=== PATIENT | male | born 1975 | race Caucasian/White ===

== ENCOUNTER 2018-06-18 15:03 | Inpatient (IN) ==
[2018-06-18 15:45] LABS: Basophils % 0.2 %; Eosinophils % 0.1 %; Hematocrit 48.2 % (37.5-50.1); Hemoglobin 16.4 g/dL (12.9-16.9); Immature Granulocytes % 0.4 % (0-4); Lymphocytes # 1.5 K/mcL (0.6-4.6); Lymphocytes % 9.4 %; Mean Corpuscular Hemoglobin 30.9 pg (28.0-33.3); Mean Corpuscular Volume 90.9 fL (83.0-100.0); Monocytes # 1.4 K/mcL (0.0-1.3); Monocytes % 8.8 %; Neutrophils # 13.2 K/mcL (1.6-8.9); Platelet Count 187 K/mcL (140-400); Red Cell Distribution Width 12.6 % (11.5-14.5); Segmented Neutrophils % 81.1 %
[2018-06-18 15:46] LABS: Bilirubin,Urine Small (Negative); Blood,Urine Small (Negative); Clarity,Urine Clear (Clear); Color,Urine Dark Yellow (Yellow); Glucose,Urine (UA) Normal (Normal); Ketones,Urine 15 mg/dL (Negative); Leukocyte Esterase,Urine Trace (Negative); Nitrite,Urine Negative (Negative); PH,Urine 6.5 pH Units (5.0-8.0); Protein,Urine 30 mg/dL (Neg-Trace); Specific Gravity,Urine 1.018 (1.010-1.025); Urobilinogen,Urine Normal (Normal)
[2018-06-18 15:48] LABS: Bacteria,Urine None Seen per hpf (None-Few); Hyaline Casts,Urine None Seen per lpf (None-Few); RBC,Urine 0-3 per hpf (0-3); Squamous Epithelial Cell,Urine Few per lpf (None-Few); WBC,Urine 0-3 per hpf (0-3)
[2018-06-18] MEDS ORDERED: 0.9 % Sodium Chloride 1,000 ML IVC ONE (15:52)
[2018-06-18] MEDS ORDERED: *HR* FentaNYL (PF) 100 MCG/2 ML VIAL IVP ONE ×2 (15:52→17:28)
[2018-06-18] MEDS ORDERED: Ondansetron 4 MG/2 ML VIAL IVP ONE (15:52)
--- NOTE | 2018-06-18 15:52 | Emergency Department Note ---
Disposition Clinical Impression: Elevated bilirubin, Perforation of sigmoid colon due to diverticulitis Leukocytosis Qualifiers: Leukocytosis type: unspecified Qualified Code(s): D72.829 - Elevated white blood cell count, unspecified Abdominal pain Qualifiers: Abdominal location: generalized Qualified Code(s): R10.84 - Generalized abdominal pain Disposition: Admitted As Inpatient Condition: Good General Adult HPI - General Chief complaint: ED Abdominal Pain Stated complaint: abd pain Time Seen by Provider: 06/18/18 15:14 - History of Present Illness Pain Scale: 6 - Related Data Allergies Allergy/AdvReac Type Severity Reaction Status Date / Time No Known Allergies Allergy Verified 06/18/18 15:15 Past Medical History - Past Medical History Medical history: Reports: no medical history Psychiatric history: Reports: no psych history - Social History Smoking Status: Current every day smoker Alcohol use: Reports: occasionally Drug use: Reports: none Physical Exam - General General appearance: alert, in no apparent distress Course Vital Signs Temperature 98.8 F 06/18/18 15:12 Pulse Rate 93 06/18/18 15:12 Respiratory Rate 18 06/18/18 15:12 Blood Pressure 149/90 06/18/18 15:12 O2 Sat by Pulse Oximetry 94 06/18/18 15:12 Temperature 98.8 F 06/18/18 15:20 Pulse Rate 99 06/18/18 17:40 Respiratory Rate 14 06/18/18 18:55 Blood Pressure 120/83 06/18/18 18:55 O2 Sat by Pulse Oximetry 98 06/18/18 17:40 Oxygen Delivery Oxygen Delivery Room Air Medical Decision Making - Lab Data Result diagrams: 06/18/18 15:33 06/18/18 15:33 Lab Results 06/18/18 06/18/18 06/18/18 Range/Units 15:21 15:33 15:33 WBC 16.2 H (4.3-11.1) K/mcL RBC 5.30 (4.19-5.50) M/mcL Hgb 16.4 (12.9-16.9) g/dL Hct 48.2 (37.5-50.1) % MCV 90.9 (83.0-100.0) fL MCH 30.9 (28.0-33.3) pg MCHC 34.0 (31.6-35.5) g/dL RDW 12.6 (11.5-14.5) % Plt Count 187 (140-400) K/mcL MPV 10.0 (9.4-12.4) fL Immature Gran % 0.4 (0-4) % Seg Neutrophils % 81.1 % Lymphocytes % 9.4 % Monocytes % 8.8 % Eosinophils % 0.1 % Basophils % 0.2 % Neutrophils # 13.2 H (1.6-8.9) K/mcL Lymphocytes # 1.5 (0.6-4.6) K/mcL Monocytes # 1.4 H (0.0-1.3) K/mcL Eosinophils # 0.0 (0.0-0.6) K/mcL Basophils # 0.0 (0.0-0.2) K/mcL Sodium 136 (136-145) mEq/L Potassium 4.1 (3.5-5.1) mEq/L Chloride 102 (98-107) mEq/L Carbon Dioxide 26 (23-29) mEq/L BUN 13 (6-20) mg/dL Creatinine 1.01 (0.70-1.30) mg/dL Est GFR ( Amer) > 60 (> 60) Est GFR (Non-Af Amer) > 60 (> 60) BUN/Creatinine Ratio 13 (6-26) Glucose 105 (70-105) mg/dL Calculated Osmolality 282 (280-300) Calcium 9.9 (8.6-10.3) mg/dL Total Bilirubin 2.3 H (0.3-1.0) mg/dL Direct Bilirubin 0.4 H (0.0-0.2) mg/dL Indirect Bilirubin 1.9 H (0.0-1.2) mg/dL AST 11 L (13-39) Units/L ALT 14 (7-52) Units/L Alkaline Phosphatase 68 (34-104) Units/L Serum Total Protein 8.0 (6.4-8.9) g/dL Albumin 4.9 (3.5-5.7) g/dL Globulin 3.1 (2.4-3.5) g/dL Albumin/Globulin Ratio 1.6 (1.1-2.2) Lipase 8 L (11-82) Units/L Urine Color Dark Yellow (Yellow) Urine Clarity Clear (Clear) Urine pH 6.5 (5.0-8.0) pH Units Ur Specific [place] 1.018 (1.010-1.025) Urine Protein 30 H (Neg-Trace) mg/dL Urine Glucose (UA) Normal (Normal) mg/dL Urine Ketones 15 H (Negative) mg/dL Urine Blood Small H (Negative) Urine Nitrite Negative (Negative) Urine Bilirubin Small H (Negative) Urine Urobilinogen Normal (Normal) mg/dL Ur Leukocyte Esterase Trace H (Negative) Urine Microscopic RBC 0-3 (0-3) per hpf Urine Microscopic WBC 0-3 (0-3) per hpf Ur Squamous Epith Cells Few (None-Few) per lpf Urine Bacteria None Seen (None-Few) per hpf Hyaline Casts None Seen (None-Few) per lpf Ur Culture Indicated? YES A (NO) Attestation Statement - Attestation Attestation: I examined this patient and my medical decision-making was reviewed with the Resident Physician. I agree with the documented findings, disposition and treatment plan as described except to the extent set forth below. Patient to the ED with a chief complaint of abdominal pain. Onset Thursday night. Pain started after eating [place] food. No diarrhea. He has not had a bowel movement since Thursday. Pain worsened today. He states is diffuse, and does not localize. On examination he appears uncomfortable. He has his knees d rawn to his abdomen. Diffuse tenderness. Seems to localize more over the lower abdomen. Plan. Labs show white blood cell count of 16,000. We will check CT CT shows diverticulitis with contained per. We will discuss with surgery Dr. nair will see in consult. Abdomen/Pelvis CT 06/18/18 15:50 IMPRESSION: Sigmoid diverticulitis with contained perforation. Focal wall thickening of the sigmoid is likely reactive although direct visualization with colonoscopy is recommended following appropriate therapy. Hepatic steatosis. Generalized bladder wall thickening. Correlation with urinalysis suggested. D/ / Kam Claros MD / Kam Claros MD Interpreting Provider: Kam Claros MD
--- NOTE | 2018-06-18 15:53 | Emergency Department Note ---
Disposition Clinical Impression: Elevated bilirubin, Perforation of sigmoid colon due to diverticulitis Leukocytosis Qualifiers: Leukocytosis type: unspecified Qualified Code(s): D72.829 - Elevated white blood cell count, unspecified Abdominal pain Qualifiers: Abdominal location: generalized Qualified Code(s): R10.84 - Generalized abdominal pain Disposition: Admitted As Inpatient Condition: Good Time of Disposition: 18:11 General Adult HPI - General Chief complaint: ED Abdominal Pain Stated complaint: abd pain Time Seen by Provider: 06/18/18 15:14 Source: patient Mode of arrival: ambulatory Limitations: no limitations Nursing Notes Reviewed: Yes Vital Signs Reviewed: Yes - History of Present Illness HPI Narrative: Patient is a 43-year-old male that presents to the emergency department with abdominal pain. Patient states is been ongoing for the past 2 days. Patient states that it began 2 nights ago and has progressively gotten worse. Patient denies any vomiting. Patient states that his last bowel movement was 2 nights ago. Patient states that since then he has had little gas production. Patient states that any time that he walks and takes heart separate on the car ride he has pain when he becomes chart. Patient states that he is a little bit more comfortable and his knees are drawn up towards his chest. Patient denies any blood in his stool or vomit. Patient states that he has had a decreased appetite and has not wanted to eat due to not feeling well and having increased abdominal pain. Patient states that he felt that he should come in to be evaluated due to having worsening of this abdominal pain. Pain Scale: 6 - Related Data Allergies Allergy/AdvReac Type Severity Reaction Status Date / Time No Known Allergies Allergy Verified 06/18/18 15:15 All systems ED: reviewed and negative except as stated. Cardiovascular: Denies: chest pain Respiratory: Denies: dyspnea Gastrointestinal: Reports: abdominal pain, nausea. Denies: vomiting, diarrhea Past Medical History - Past Medical History Medical history: Reports: no medical history Psychiatric history: Reports: no psych history - Social History Smoking Status: Current every day smoker Alcohol use: Reports: occasionally Drug use: Reports: none Physical Exam - General Limitations: no limitations General appearance: alert, in no apparent distress - Head Head exam: atraumatic, normocephalic - Eye Eye exam: Present: normal appearance, EOMI - Neck Neck exam: Present: normal inspection, full ROM, trachea midline - Respiratory Respiratory exam: Present: normal lung sounds bilaterally. Absent: respiratory distress, wheezes - Cardiovascular Cardiovascular exam: Present: regular rate, normal rhythm, normal heart sounds, +S1, +S2 - Abdominal Exam Abdominal exam: Present: soft, tenderness, guarding, normal bowel sounds. Absent: distention, rebound, rigidity Abdominal tenderness: Present: diffuse, moderate - Neurological Exam Neurological exam: Present: alert, oriented X3 - Psychiatric Psychiatric exam: Present: normal affect, normal mood - Skin Skin exam: Present: warm, dry, intact Course Vital Signs Temperature 98.8 F 06/18/18 15:12 Pulse Rate 93 06/18/18 15:12 Respiratory Rate 18 06/18/18 15:12 Blood Pressure 149/90 06/18/18 15:12 O2 Sat by Pulse Oximetry 94 06/18/18 15:12 Temperature 98.8 F 06/18/18 15:20 Pulse Rate 99 06/18/18 17:40 Respiratory Rate 16 06/18/18 17:40 Blood Pressure 122/56 06/18/18 17:40 O2 Sat by Pulse Oximetry 98 06/18/18 17:40 Oxygen Delivery Oxygen Delivery Room Air Medical Decision Making - MDM Narrative Medical decision making narrative: Due the patient presenting to the emergency department with significant abdominal pain we will obtain a CT scan of the abdomen and pelvis to evaluate for possible abdominal pathology as well as basic laboratory testing. There is a high clinical suspicion that this patient could have appendicitis versus diverticulitis. Patient does have an elevated white count. His CT scan showed sigmoid diverticulitis with a contained perforation. I called and spoke the on- call surgeon Dr. nair and he recommended that the patient be admitted to the hospital under the hospitalist service with a surgical consult. He also recommended that the patient be placed on Zosyn and Flagyl. Patient was started on Zosyn and Flagyl here in the emergency department was admitted to the hospitalist service. Dr. Garcia the [facility] was accepted the patient to their service. - Medical Records Medical records reviewed: Yes I reviewed the patient's medical records. - Lab Data Lab results reviewed: Yes I reviewed the patient's lab results. Result diagrams: 06/18/18 15:33 06/18/18 15:33 Lab Results 06/18/18 06/18/18 06/18/18 Range/Units 15:21 15:33 15:33 WBC 16.2 H (4.3-11.1) K/mcL RBC 5.30 (4.19-5.50) M/mcL Hgb 16.4 (12.9-16.9) g/dL Hct 48.2 (37.5-50.1) % MCV 90.9 (83.0-100.0) fL MCH 30.9 (28.0-33.3) pg MCHC 34.0 (31.6-35.5) g/dL RDW 12.6 (11.5-14.5) % Plt Count 187 (140-400) K/mcL MPV 10.0 (9.4-12.4) fL Immature Gran % 0.4 (0-4) % Seg Neutrophils % 81.1 % Lymphocytes % 9.4 % Monocytes % 8.8 % Eosinophils % 0.1 % Basophils % 0.2 % Neutrophils # 13.2 H (1.6-8.9) K/mcL Lymphocytes # 1.5 (0.6-4.6) K/mcL Monocytes # 1.4 H (0.0-1.3) K/mcL Eosinophils # 0.0 (0.0-0.6) K/mcL Basophils # 0.0 (0.0-0.2) K/mcL Sodium 136 (136-145) mEq/L Potassium 4.1 (3.5-5.1) mEq/L Chloride 102 (98-107) mEq/L Carbon Dioxide 26 (23-29) mEq/L BUN 13 (6-20) mg/dL Creatinine 1.01 (0.70-1.30) mg/dL Est GFR ( Amer) > 60 (> 60) Est GFR (Non-Af Amer) > 60 (> 60) BUN/Creatinine Ratio 13 (6-26) Glucose 105 (70-105) mg/dL Calculated Osmolality 282 (280-300) Calcium 9.9 (8.6-10.3) mg/dL Total Bilirubin 2.3 H (0.3-1.0) mg/dL Direct Bilirubin 0.4 H (0.0-0.2) mg/dL Indirect Bilirubin 1.9 H (0.0-1.2) mg/dL AST 11 L (13-39) Units/L ALT 14 (7-52) Units/L Alkaline Phosphatase 68 (34-104) Units/L Serum Total Protein 8.0 (6.4-8.9) g/dL Albumin 4.9 (3.5-5.7) g/dL Globulin 3.1 (2.4-3.5) g/dL Albumin/Globulin Ratio 1.6 (1.1-2.2) Lipase 8 L (11-82) Units/L Urine Color Dark Yellow (Yellow) Urine Clarity Clear (Clear) Urine pH 6.5 (5.0-8.0) pH Units Ur Specific [place] 1.018 (1.010-1.025) Urine Protein 30 H (Neg-Trace) mg/dL Urine Glucose (UA) Normal (Normal) mg/dL Urine Ketones 15 H (Negative) mg/dL Urine Blood Small H (Negative) Urine Nitrite Negative (Negative) Urine Bilirubin Small H (Negative) Urine Urobilinogen Normal (Normal) mg/dL Ur Leukocyte Esterase Trace H (Negative) Urine Microscopic RBC 0-3 (0-3) per hpf Urine Microscopic WBC 0-3 (0-3) per hpf Ur Squamous Epith Cells Few (None-Few) per lpf Urine Bacteria None Seen (None-Few) per hpf Hyaline Casts None Seen (None-Few) per lpf Ur Culture Indicated? YES A (NO) - Radiology Data Radiology results reviewed: Yes I reviewed the patient's radiology results. Abdomen/Pelvis CT 06/18/18 15:50 IMPRESSION: Sigmoid diverticulitis with contained perforation. Focal wall thickening of the sigmoid is likely reactive although direct visualization with colonoscopy is recommended following appropriate therapy. Hepatic steatosis. Generalized bladder wall thickening. Correlation with urinalysis suggested. D/ / Kam Claros MD / Kam Claros MD Interpreting Provider: Kam Claros MD
[2018-06-18 16:03] LABS: Alanine Aminotransferase 14 Units/L (7-52); Albumin 4.9 g/dL (3.5-5.7); Albumin/Globulin Ratio 1.6 (1.1-2.2); Alkaline Phosphatase 68 Units/L (34-104); Aspartate Amino Transferase 11 Units/L (13-39); BUN/Creatinine Ratio 13 (6-26); Bilirubin,Direct 0.4 mg/dL (0.0-0.2); Bilirubin,Indirect 1.9 mg/dL (0.0-1.2); Bilirubin,Total 2.3 mg/dL (0.3-1.0); Blood Urea Nitrogen 13 mg/dL (6-20); Calcium 9.9 mg/dL (8.6-10.3); Carbon Dioxide 26 mEq/L (23-29); Chloride 102 mEq/L (98-107); Globulin 3.1 g/dL (2.4-3.5); Glucose 105 mg/dL (70-105); Lipase 8 Units/L (11-82); Osmolality,Calculated 282 (280-300); Potassium 4.1 mEq/L (3.5-5.1); Sodium 136 mEq/L (136-145); eGFR For Non-African Americans > 60 (> 60)
[2018-06-18] MEDS ORDERED: MetroNIDAZOLE 500 MG/100 ML 500 MG/100 ML BAG IVPB ONE (17:44)
[2018-06-18] MEDS ORDERED: Piperacillin/Tazobactam 3.375 GM in 0.9 % Sodium Chloride Mini Bag 100 ML IVPB ONE (18:01)
[2018-06-18] MEDS ORDERED: Naloxone 0.4 MG/ML INJ IVP PRN (19:28)
[2018-06-18] MEDS ORDERED: Acetaminophen 325 MG TABLET PO PRN (19:28)
[2018-06-18] MEDS ORDERED: Ondansetron 4 MG/2 ML VIAL IVP PRN (19:28)
--- NOTE | 2018-06-18 19:33 | Internal Med History&Physical ---
Date of Encounter: 06/18/18 Time of Encounter: 19:30 Internal Medicine - H&P: HPI Chief complaint: Abdominal pain Admitted From: Emergency Dept Plans for Post Hospital Care: Home History of present illness: Mr. Duckworth is a 43 year old male who presents to the emergency department with abdominal pain that has been going on for a couple days or so. Started at nighttime a couple nights ago and has been getting worse. He said he had [place] food at the time. His last bowel movement was couple nights ago. He has been nauseous. The ED was hemodynamic is stable and underwent a CT abdomen and pelvis which showed sigmoid diverticulitis with contained perforation. Dr. Nair was consulted in the ED and recommended the patient be admitted and started on IV Flagyl and Zosyn. Labs showed leukocytosis. Bilirubin total was elevated at 2.3 and direct was 0.4 and indirect bilirubin was 1.9. AST and ALT were not elevated. Hospice was not elevated. No history of liver disease. Patient denies any headache, fever, chills, blurry vision, chest pain, shortness of breath, diarrhea, urinary symptoms, or neurological symptoms Past Med Surg Social Fam HX - Past Medical History Medical history: no medical history Psychiatric history: no psych history - Past Surgical History Additional surgical history: right ACL - Social History Smoking Status: Current every day smoker Alcohol use: occasionally Drug use: none Internal Medicine - H&P: Meds No Known Home Drugs 06/18/18 [History] Allergy/AdvReac Type Severity Reaction Status Date / Time No Known Allergies Allergy Verified 06/18/18 15:15 All Systems PM: A 10-system review of systems was performed and is negative for pertinent findings except as documented above in the HPI. Review of systems: All systems reviewed are negative except for as mentioned above - Constitutional Vitals: Temp Pulse Resp BP Pulse Ox 98.8 F 99 14 120/83 98 06/18/18 15:20 06/18/18 17:40 06/18/18 18:55 06/18/18 18:55 06/18/18 17:40 Exam: GEN: NAD HEENT: AT, NC, No cyanosis, oral mucosa is moist, No JVD Lymphatics: No lymphadenoapthy Eyes: Extrocular muscles intact, anicteric CVS:RRR. S1, S2, No m/r/g RESP: CTAB ABD: Left lower quadrant abdominal tenderness with no rebound, +BS EXT: No edema, No rashes, 2+ DP NEURO: Nonfocal, CN II-XII intact, No focal motor or sensory deficits Psych: Cooperative, Not anxious or depressed Internal Med - H&P Results - Labs CBC & Chem 7: 06/18/18 15:33 06/18/18 15:33 Labs: Short CBC 06/18/18 Range/Units 15:33 WBC 16.2 H (4.3-11.1) K/mcL Hgb 16.4 (12.9-16.9) g/dL Hct 48.2 (37.5-50.1) % Plt Count 187 (140-400) K/mcL Neutrophils # 13.2 H (1.6-8.9) K/mcL BMP 06/18/18 15:33 Sodium 136 Potassium 4.1 Chloride 102 Carbon Dioxide 26 BUN 13 Creatinine 1.01 Glucose 105 Calcium 9.9 Liver Function 06/18/18 Range/Units 15:33 Total Bilirubin 2.3 H (0.3-1.0) mg/dL Direct Bilirubin 0.4 H (0.0-0.2) mg/dL AST 11 L (13-39) Units/L ALT 14 (7-52) Units/L Alkaline Phosphatase 68 (34-104) Units/L Albumin 4.9 (3.5-5.7) g/dL Urine 06/18/18 Range/Units 15:21 Urine Color Dark Yellow (Yellow) Urine Clarity Clear (Clear) Urine pH 6.5 (5.0-8.0) pH Units Ur Specific [place] 1.018 (1.010-1.025) Urine Protein 30 H (Neg-Trace) mg/dL Urine Glucose (UA) Normal (Normal) mg/dL - Impressions ITS Impressions Abdomen/Pelvis CT 06/18/18 15:50 IMPRESSION: Sigmoid diverticulitis with contained perforation. Focal wall thickening of the sigmoid is likely reactive although direct visualization with colonoscopy is recommended following appropriate therapy. Hepatic steatosis. Generalized bladder wall thickening. Correlation with urinalysis suggested. D/ / Kam Claros MD / Kam Claros MD Interpreting Provider: Kam Claros MD - Assessment and plan (1) Perforation of sigmoid colon due to diverticulitis Current Visit: Yes Status: Acute Assessment and plan: Dr. nair was consulted in the ED regarding this and wanted the patient to be on Zosyn and Flagyl. We will order those. We will keep him nothing by mouth. Pain control and antiemetics. IV fluids. (2) Hyperbilirubinemia Current Visit: Yes Status: Acute Assessment and plan: I am going to attribute this to his infectious cause for now. We will check labs in the morning. If this persists it may need to be worked up further. (3) DVT prophylaxis Current Visit: Yes Status: Acute Assessment and plan: Heparin subcutaneous - Time Spent With Patient Total time spent is greater than 50% in coordination of care (as documented) at patient's floor/unit and/or counseling patient:
[2018-06-18] MEDS: *HR* HYDROcodone/Acet 5/325 mg TABLET PO PRN (20:10)
[2018-06-18] MEDS: 0.9 % Sodium Chloride 1,000 ML IVC SCH (20:13)
[2018-06-18] MEDS: MetroNIDAZOLE 500 MG/100 ML 500 MG/100 ML BAG IVPB SCH (23:11)
[2018-06-18] MEDS: Piperacillin/Tazobactam 3.375 GM in 0.9 % Sodium Chloride Mini Bag 100 ML IVPB SCH (23:11)
[2018-06-18] MEDS: *HR* Heparin 5,000 UNIT/ML VIAL SQ SCH (23:12)
[2018-06-18] MEDS ORDERED: Ketorolac 30 MG/ML VIAL IVP ONE (23:58)
[2018-06-19] MEDS: *HR* HYDROcodone/Acet 5/325 mg TABLET PO PRN ×2 (03:18→09:22)
[2018-06-19] MEDS: 0.9 % Sodium Chloride 1,000 ML IVC SCH ×2 (05:18→14:52)
[2018-06-19] MEDS: *HR* Heparin 5,000 UNIT/ML VIAL SQ SCH ×3 (05:29→21:03)
[2018-06-19 06:37] LABS: Basophils % 0.3 %; Eosinophils % 0.4 %; Immature Granulocytes % 0.4 % (0-4); Lymphocytes # 1.3 K/mcL (0.6-4.6); Lymphocytes % 13.1 %; Mean Corpuscular HGB Conc 32.8 g/dL (31.6-35.5); Mean Corpuscular Volume 94.6 fL (83.0-100.0); Mean Platelet Volume 10.3 fL (9.4-12.4); Monocytes # 0.9 K/mcL (0.0-1.3); Monocytes % 8.8 %; Neutrophils # 7.5 K/mcL (1.6-8.9); Platelet Count 151 K/mcL (140-400); Red Blood Count 4.23 M/mcL (4.19-5.50); Red Cell Distribution Width 12.6 % (11.5-14.5)
[2018-06-19 06:42] LABS: Hemoglobin 13.1 g/dL (12.9-16.9)
[2018-06-19 06:53] LABS: BUN/Creatinine Ratio 16 (6-26); Blood Urea Nitrogen 17 mg/dL (6-20); Calcium 8.6 mg/dL (8.6-10.3); Carbon Dioxide 25 mEq/L (23-29); Chloride 105 mEq/L (98-107); Glucose 82 mg/dL (70-105); Magnesium 2.4 mg/dL (1.6-2.6); Osmolality,Calculated 285 (280-300); Potassium 3.9 mEq/L (3.5-5.1); Sodium 137 mEq/L (136-145); eGFR For Non-African Americans > 60 (> 60)
[2018-06-19 06:54] LABS: Alanine Aminotransferase 10 Units/L (7-52); Albumin 3.7 g/dL (3.5-5.7); Albumin/Globulin Ratio 1.5 (1.1-2.2); Alkaline Phosphatase 51 Units/L (34-104); Aspartate Amino Transferase 9 Units/L (13-39); BUN/Creatinine Ratio 15 (6-26); Bilirubin,Total 1.5 mg/dL (0.3-1.0); Blood Urea Nitrogen 16 mg/dL (6-20); Calcium 8.5 mg/dL (8.6-10.3); Carbon Dioxide 26 mEq/L (23-29); Chloride 105 mEq/L (98-107); Globulin 2.5 g/dL (2.4-3.5); Glucose 82 mg/dL (70-105); Osmolality,Calculated 284 (280-300); Sodium 137 mEq/L (136-145); Total Protein 6.2 g/dL (6.4-8.9); eGFR For Non-African Americans > 60 (> 60)
[2018-06-19] MEDS: Piperacillin/Tazobactam 3.375 GM in 0.9 % Sodium Chloride Mini Bag 100 ML IVPB SCH ×2 (07:47→15:22)
[2018-06-19] MEDS: MetroNIDAZOLE 500 MG/100 ML 500 MG/100 ML BAG IVPB SCH ×2 (07:50→15:21)
[2018-06-19] MEDS ORDERED: *HR* HYDROmorphone (PF) 1 MG/ML SYRINGE IVP PRN (09:28)
--- NOTE | 2018-06-19 11:18 | Internal Med Progress Note ---
Hospitalist Progress Note - Encounter Date of Encounter: 06/19/18 Time of Encounter: 11:14 - Subjective Interval History: Seen and examined at bedside; patient is new to me. Information obtained from chart review and patient report. He is still having ABD pain, not much better from arrival. Says IV pain medicine is helping a little more than PO - Exam Vitals: Temp Pulse Resp BP Pulse Ox 98.3 F 58 16 118/67 94 06/19/18 07:07 06/19/18 07:07 06/19/18 07:07 06/19/18 07:07 06/19/18 07:07 Exam: General appearance: Present: A&O X 3, appears uncomfortable - Head Head exam: Present: atraumatic, normocephalic - Eye Eye exam: Present: PERRL, conjuntiva pink, sclera anicteric Pupils: Present: PERRL - Neck Neck exam general surgery: Present: supple, trachea midline. Absent: lymphadenopathy - Respiratory Respiratory exam: Present: chest wall tenderness, CTAB. Absent: accessory muscle use, rales, rhonchi, wheezes - Cardiovascular Cardiovascular exam: Present: RRR, +S1, +S2. Absent: diastolic murmur, gallop, rubs, systolic murmur - GI/Abdominal GI/Abdominal exam: Present: normal bowel sounds, soft, no peritoneal signs, diffuse tenderness Absent: distended - Extremities Exam Extremities exam: Present: warm, radial pulses palpable and symmetrical. A bsent: calf tenderness, cyanotic, pedal edema - Neurological Exam Neurological exam: Present: CN II-XII intact, oriented X3, no focal deficits. Absent: pronater drift, facial droop, speech deficit - Skin Skin exam: Present: dry, intact - Assessment and Plan (1) Perforation of sigmoid colon due to diverticulitis Current Visit: Yes Status: Acute Assessment and Plan: presented with abdominal pain. ABD CT showed sigmoid diverticulitis with contained perforation. Keep NPO, IV fluids and pain control. IV Zosyn and Flagyl. Surgery consulted (2) Hyperbilirubinemia Current Visit: Yes Status: Acute Assessment and Plan: Total bilirubin 2.3; in the setting of acute diverticulitis. Repeat bilirubin improving. Continue to monitor. DVT Prophylaxis: heparin - Time Spent with Patient Total time spent is greater than 50% in coordination of care (as documented) at patient's floor/unit and/or counseling patient: Internal Medicine: Result - Labs CBC & Chem 7: 06/19/18 05:53 06/19/18 05:53 Labs: Short CBC 06/18/18 06/19/18 Range/Units 15:33 05:53 WBC 16.2 H 9.7 (4.3-11.1) K/mcL Hgb 16.4 13.1 D (12.9-16.9) g/dL Hct 48.2 40.0 (37.5-50.1) % Plt Count 187 151 (140-400) K/mcL Neutrophils # 13.2 H 7.5 (1.6-8.9) K/mcL BMP 06/18/18 06/19/18 06/19/18 15:33 05:53 05:53 Sodium 136 137 137 Potassium 4.1 3.9 4.0 Chloride 102 105 105 Carbon Dioxide 26 25 26 BUN 13 17 16 Creatinine 1.01 1.09 1.07 Glucose 105 82 82 Calcium 9.9 8.6 8.5 L Liver Function 06/18/18 06/19/18 Range/Units 15:33 05:53 Total Bilirubin 2.3 H 1.5 H (0.3-1.0) mg/dL Direct Bilirubin 0.4 H (0.0-0.2) mg/dL AST 11 L 9 L (13-39) Units/L ALT 14 10 (7-52) Units/L Alkaline Phosphatase 68 51 (34-104) Units/L Albumin 4.9 3.7 (3.5-5.7) g/dL Urine 06/18/18 Range/Units 15:21 Urine Color Dark Yellow (Yellow) Urine Clarity Clear (Clear) Urine pH 6.5 (5.0-8.0) pH Units Ur Specific [place] 1.018 (1.010-1.025) Urine Protein 30 H (Neg-Trace) mg/dL Urine Glucose (UA) Normal (Normal) mg/dL - Impressions Impressions Abdomen/Pelvis CT 06/18/18 15:50 IMPRESSION: Sigmoid diverticulitis with contained perforation. Focal wall thickening of the sigmoid is likely reactive although direct visualization with colonoscopy is recommended following appropriate therapy. Hepatic steatosis. Generalized bladder wall thickening. Correlation with urinalysis suggested. D/ / Kam Claros MD / Kam Claros MD Interpreting Provider: Kam Claros MD Consult Discharge Plan - Plan Referrals: NONE,PCP [Primary Care Provider] -
[2018-06-19] MEDS ORDERED: *HR* HYDROmorphone 20 MG/20 ML PCA IVC PRN (14:32)
--- NOTE | 2018-06-19 14:50 | General Surgery Consult Note ---
Date of Encounter: 06/19/18 Time of Encounter: 14:00 History of Present Illness Reason for consult: abdominal pain (acute perforated diverticulitis with contained abscess) Requesting physician: Yovana Velez History of present illness: 43-year-old male admitted to [facility] after presenting to the emergency room with approximately 24-hour history of progressive lower abdominal pain. The pain is particularly severe in the left lower quadrant but he does have right lower quadrant abdominal pain. White count is elevated at 16.2 with 13.2 neutrophils. Electrolytes, BUN, creatinine were within normal limits. Total bilirubin 2.3 with AST 11, ALT 14, alkaline phosphatase 68. CT abdomen/pelvis notable for findings consistent with hepatic steatosis; colonic diverticulosis with superimposed sigmoid diverticulitis. The sigmoid is described to be diffusely thick-walled with a single punctate focus of extraluminal air adjacent to the inflamed diverticulum consistent with a contained perforation. The patient has been admitted, IV antibiotics initiated. Surgical services consulted. Past medical history: Unremarkable Surgical history: Right arthroscopic repair ACL; tonsils and adenoidectomy; vasectomy Medications: No routine home meds Allergies: No known drug allergies Social history: Patient admits to 1+ pack cigarettes per day for at least 25 years; he consumes alcohol (beer) 4-6 times weekly; he admits to rare marijuana use. No other illicit drug use Physical examination: Age-appropriate, well-developed well-nourished male resting comfortably in his hospital bed. 1.8 cm tall, 75.6 kg, BMI 22.6. Patient has remained afebrile, currently 98.5, pulse 71, respirations 16, blood pressure 123/73. SPO2 on room air 96% Skin: Warm, no obvious jaundice Lungs: Clear bilaterally, abdominal pain reported with deep inspiration Cardiac: Regular rate, no appreciable murmurs Abdomen: Nondistended, diffusely tender in both lower quadrants. No detected intra-abdominal masses but involuntary guarding decreases the sensitivity of his abdominal exam. No audible bowel sounds. The patient describes a diarrheal bowel movement this morning. Extremities: No obvious clubbing, cyanosis, or edema CT abdomen/pelvis - reviewed Labs: White count today has improved to 9.7, hemoglobin 13.1, hematocrit 40.0. Neutrophils have returned to normal at 7.5. Electrolytes, BUN, creatinine remain within normal limits. Bilirubin has improved to 1.5. Impression: 43-year-old male with acute sigmoid diverticulitis with extraluminal air consistent with a contained perforation. The patient was examined, and lengthy discussion ensued regarding treatment options. They include immediate or urgent surgical resection with high likelihood of an end colostomy versus aggressive therapy with IV antibiotics (Zosyn and metronidazole) with delayed primary resection (sigmoid colectomy with stapled colocolonic anastomosis) once the acute inflammation has subsided. Recommendations: Continue Zosyn and metronidazole Nothing by mouth until pain free - the patient may have ice chips sparingly I will follow along with you and make further recommendations based on the patient's clinical condition and response to intervention. Past Med Surg Social Fam HX - Past Medical History Medical history: no medical history Psychiatric history: no psych history - Past Surgical History Additional surgical history: right ACL - Social History Smoking Status: Current every day smoker Alcohol use: occasionally Drug use: none Medications and Allergies No Known Home Drugs 06/18/18 [History] Allergy/AdvReac Type Severity Reaction Status Date / Time No Known Allergies Allergy Verified 06/18/18 15:15 Review of Systems All systems PM: The remainder of the systems were reviewed and are negative General Surgery Exam Initial Vital Signs Temp Pulse Resp BP Pulse Ox 98.8 F 93 18 149/90 94 06/18/18 15:12 06/18/18 15:12 06/18/18 15:12 06/18/18 15:12 06/18/18 15:12 Exam Initial Vital Signs Temp Pulse Resp BP Pulse Ox 98.8 F 93 18 149/90 94 06/18/18 15:12 06/18/18 15:12 06/18/18 15:12 06/18/18 15:12 06/18/18 15:12 Results - Labs 06/19/18 05:53 06/19/18 05:53 Abnormal lab results Calcium 8.5 mg/dL (8.6-10.3) L 06/19/18 05:53 Total Bilirubin 1.5 mg/dL (0.3-1.0) H 06/19/18 05:53 Direct Bilirubin 0.4 mg/dL (0.0-0.2) H 06/18/18 15:33 Indirect Bilirubin 1.9 mg/dL (0.0-1.2) H 06/18/18 15:33 AST 9 Units/L (13-39) L 06/19/18 05:53 Serum Total Protein 6.2 g/dL (6.4-8.9) L 06/19/18 05:53 Lipase 8 Units/L (11-82) L 06/18/18 15:33 Urine Protein 30 mg/dL (Neg-Trace) H 06/18/18 15:21 Urine Ketones 15 mg/dL (Negative) H 06/18/18 15:21 Urine Blood Small (Negative) H 06/18/18 15:21 Urine Bilirubin Small (Negative) H 06/18/18 15:21 Ur Leukocyte Esterase Trace (Negative) H 06/18/18 15:21 Ur Culture Indicated? YES (NO) A 06/18/18 15:21 Diabetes panel 06/18/18 06/19/18 06/19/18 Range/Units 15:33 05:53 05:53 Sodium 136 137 137 (136-145) mEq/L Potassium 4.1 3.9 4.0 (3.5-5.1) mEq/L Chloride 102 105 105 (98-107) mEq/L Carbon Dioxide 26 25 26 (23-29) mEq/L BUN 13 17 16 (6-20) mg/dL Creatinine 1.01 1.09 1.07 (0.70-1.30) mg/dL Glucose 105 82 82 (70-105) mg/dL Calcium 9.9 8.6 8.5 L (8.6-10.3) mg/dL AST 11 L 9 L (13-39) Units/L ALT 14 10 (7-52) Units/L Alkaline Phosphatase 68 51 (34-104) Units/L Albumin 4.9 3.7 (3.5-5.7) g/dL Calcium panel 06/18/18 06/19/18 06/19/18 Range/Units 15:33 05:53 05:53 Calcium 9.9 8.6 8.5 L (8.6-10.3) mg/dL Albumin 4.9 3.7 (3.5-5.7) g/dL Pituitary panel 06/18/18 06/19/18 06/19/18 Range/Units 15:33 05:53 05:53 Sodium 136 137 137 (136-145) mEq/L Potassium 4.1 3.9 4.0 (3.5-5.1) mEq/L Chloride 102 105 105 (98-107) mEq/L Carbon Dioxide 26 25 26 (23-29) mEq/L BUN 13 17 16 (6-20) mg/dL Creatinine 1.01 1.09 1.07 (0.70-1.30) mg/dL Glucose 105 82 82 (70-105) mg/dL Calcium 9.9 8.6 8.5 L (8.6-10.3) mg/dL Adrenal panel 06/18/18 06/19/18 06/19/18 Range/Units 15:33 05:53 05:53 Sodium 136 137 137 (136-145) mEq/L Potassium 4.1 3.9 4.0 (3.5-5.1) mEq/L Chloride 102 105 105 (98-107) mEq/L Carbon Dioxide 26 25 26 (23-29) mEq/L BUN 13 17 16 (6-20) mg/dL Creatinine 1.01 1.09 1.07 (0.70-1.30) mg/dL Glucose 105 82 82 (70-105) mg/dL Calcium 9.9 8.6 8.5 L (8.6-10.3) mg/dL Total Bilirubin 2.3 H 1.5 H (0.3-1.0) mg/dL AST 11 L 9 L (13-39) Units/L ALT 14 10 (7-52) Units/L Alkaline Phosphatase 68 51 (34-104) Units/L Albumin 4.9 3.7 (3.5-5.7) g/dL All other labs normal. Consult Discharge Plan - Plan Referrals: NONE,PCP [Primary Care Provider] -
[2018-06-20] MEDS: MetroNIDAZOLE 500 MG/100 ML 500 MG/100 ML BAG IVPB SCH ×4 (00:08→23:56)
[2018-06-20] MEDS: Piperacillin/Tazobactam 3.375 GM in 0.9 % Sodium Chloride Mini Bag 100 ML IVPB SCH ×4 (00:12→23:56)
[2018-06-20] MEDS: 0.9 % Sodium Chloride 1,000 ML IVC SCH ×2 (00:24→08:20)
[2018-06-20 05:02] LABS: Hematocrit 38.4 % (37.5-50.1); Hemoglobin 13.1 g/dL (12.9-16.9); Mean Corpuscular HGB Conc 34.1 g/dL (31.6-35.5); Mean Corpuscular Hemoglobin 31.4 pg (28.0-33.3); Mean Corpuscular Volume 92.1 fL (83.0-100.0); Platelet Count 151 K/mcL (140-400); Red Blood Count 4.17 M/mcL (4.19-5.50); Red Cell Distribution Width 12.2 % (11.5-14.5)
[2018-06-20 05:20] LABS: BUN/Creatinine Ratio 13 (6-26); Blood Urea Nitrogen 13 mg/dL (6-20); Calcium 8.5 mg/dL (8.6-10.3); Carbon Dioxide 18 mEq/L (23-29); Chloride 108 mEq/L (98-107); Glucose 81 mg/dL (70-105); Osmolality,Calculated 285 (280-300); Potassium 3.9 mEq/L (3.5-5.1); Sodium 138 mEq/L (136-145); eGFR For Non-African Americans > 60 (> 60)
[2018-06-20] MEDS: *HR* Heparin 5,000 UNIT/ML VIAL SQ SCH ×3 (05:21→21:30)
--- NOTE | 2018-06-20 09:24 | Internal Med Progress Note ---
Hospitalist Progress Note - Encounter Date of Encounter: 06/20/18 Time of Encounter: 09:29 - Subjective Interval History: Seen and examined at bedside. Still having abdominal pain but overall improved from yesterday's exam. He is tolerating ice chips with no increase in abdominal pain at this time. - Exam Vitals: Temp Pulse Resp BP Pulse Ox 98.5 F 62 15 131/61 96 06/20/18 04:11 06/20/18 04:11 06/20/18 04:11 06/20/18 04:11 06/20/18 04:11 Exam: General appearance: Present: A&O X 3, no distress - Head Head exam: Present: atraumatic, normocephalic - Eye Eye exam: Present: PERRL, conjuntiva pink, sclera anicteric Pupils: Present: PERRL - Neck Neck exam general surgery: Present: supple, trachea midline. Absent: lymphadenopathy - Respiratory Respiratory exam: Present: chest wall tenderness, CTAB. Absent: accessory muscle use, rales, rhonchi, wheezes - Cardiovascular Cardiovascular exam: Present: RRR, +S1, +S2. Absent: diastolic murmur, gallop, rubs, systolic murmur - GI/Abdominal GI/Abdominal exam: Present: normal bowel sounds, soft, no peritoneal signs, + diffuse tenderness Absent: distended - Extremities Exam Extremities exam: Present: warm, radial pulses palpable and symmetrical. Absent: calf tenderness, cyanotic, pedal edema - Neurological Exam Neurological exam: Present: CN II-XII intact, oriented X3, no focal deficits. Absent: pronater drift, facial droop, speech deficit - Skin Skin exam: Present: dry, intact - Assessment and Plan (1) Perforation of sigmoid colon due to diverticulitis Current Visit: Yes Status: Acute Assessment and Plan: presented with abdominal pain. ABD CT showed sigmoid diverticulitis with co ntained perforation. General surgery following and surgical options are urgent surgical resection with high likelihood of an end colostomy versus aggressive therapy with IV antibiotics with delayed primary resection once the acute inflammation has subsided. Keep NPO for now (ice chips okay per surgery), IV fluids and RESOURCE DEVELOPMENT DIRECTOR pump for pain control. IV Zosyn and Flagyl. General Surgery following (2) Hyperbilirubinemia Current Visit: Yes Status: Acute Assessment and Plan: Total bilirubin 2.3; in the setting of acute diverticulitis. Repeat bilirubin improving. Continue to monitor. DVT Prophylaxis: heparin - Time Spent with Patient Total time spent is greater than 50% in coordination of care (as documented) at patient's floor/unit and/or counseling patient: 25 - 35 minutes Plan of Care Discussed with: patient Internal Medicine: Result - Labs CBC & Chem 7: 06/20/18 04:37 06/20/18 04:37 Labs: Short CBC 06/20/18 Range/Units 04:37 WBC 6.1 (4.3-11.1) K/mcL Hgb 13.1 (12.9-16.9) g/dL Hct 38.4 (37.5-50.1) % Plt Count 151 (140-400) K/mcL BMP 06/20/18 04:37 Sodium 138 Potassium 3.9 Chloride 108 H Carbon Dioxide 18 L BUN 13 Creatinine 0.98 Glucose 81 Calcium 8.5 L Consult Discharge Plan - Plan Referrals: NONE,PCP [Primary Care Provider] -
--- NOTE | 2018-06-20 10:08 | General Surgery Progress Note ---
Date of Encounter: 06/20/18 Time of Encounter: 09:40 Subjective Patient reports: feels better, still having pain Narrative: General Surgery - Patient feeling better; no nausea or vomiting. Afebrile, hemodynamically stable. Pulse 62, respirations 15, blood pressure 131/61. Lungs: Clear to auscultation, no longer experiencing pain on deep inspiration Abdomen: Soft with persistent tenderness, primarily located left lower quadrant. Active bowel sounds. Patient passing flatus, 2 small diarrheal bowel movements noted since admission Laboratories: White count 6.1, hemoglobin 13.1 and hematocrit 38.4. Electrolytes notable for a chloride of 108, bicarbonate 18. BUN 13, creatinine 0.98 CT abdomen/pelvis reviewed with [facility] - the described single punctate focus of extraluminal air adjacent to the inflamed diverticulum may be extraluminal versus located within a "elongated" diverticulum. This finding does not change current treatment options, however, may make a difference in surgical treatment recommended in the future. Recommendations: Continue current IV antibiotics Reduce IV fluids Maintain NPO except for ice chips until pain is significantly diminished or resolved. Objective Vital Signs - Last 8 Hours Temp Pulse Resp BP Pulse Ox 06/20/18 04:11 98.5 F 62 15 131/61 96 Intake and Output 06/19/18 06/20/18 06/20/18 23:59 07:59 15:59 Intake Total 1200 / 1200 200 / 200 1000 / 1000 Output Total 350 / 350 Balance 850 / 850 200 / 200 1000 / 1000 Intake: IV Fluids 1200 / 1200 200 / 200 1000 / 1000 0.9 % Sodium Chloride 1,000 ML 1000 / 1000 1000 / 1000 @ 125 mls/hr IVC .Q8H [facility] Rx#: [id number] Flagyl Premix 500 MG/100 ML 500 100 / 100 100 / 100 mg In 100 ml @ 100 mls/hr IVPB Q8HR [facility] Rx#:[id number] Zosyn 3.375 GM In 0.9 % Sodium 100 / 100 100 / 100 Chloride (Mini-Bag +) 100 ML @ 25 mls/hr IVPB Q8HR [facility] Rx#: [id number] Oral 0 / 0 Output: Urine 350 / 350 Other: Meal npo Percent of Meal Consumed 0% Weight 75.8 kg Blood Glucose* 75 78 Patient Weight 06/20/18 23:59 Weight 75.8 kg - Labs 06/20/18 04:37 06/20/18 04:37 Diabetes panel 06/20/18 Range/Units 04:37 Sodium 138 (136-145) mEq/L Potassium 3.9 (3.5-5.1) mEq/L Chloride 108 H (98-107) mEq/L Carbon Dioxide 18 L (23-29) mEq/L BUN 13 (6-20) mg/dL Creatinine 0.98 (0.70-1.30) mg/dL Glucose 81 (70-105) mg/dL Calcium 8.5 L (8.6-10.3) mg/dL Calcium panel 06/20/18 Range/Units 04:37 Calcium 8.5 L (8.6-10.3) mg/dL Pituitary panel 06/20/18 Range/Units 04:37 Sodium 138 (136-145) mEq/L Potassium 3.9 (3.5-5.1) mEq/L Chloride 108 H (98-107) mEq/L Carbon Dioxide 18 L (23-29) mEq/L BUN 13 (6-20) mg/dL Creatinine 0.98 (0.70-1.30) mg/dL Glucose 81 (70-105) mg/dL Calcium 8.5 L (8.6-10.3) mg/dL Adrenal panel 06/20/18 Range/Units 04:37 Sodium 138 (136-145) mEq/L Potassium 3.9 (3.5-5.1) mEq/L Chloride 108 H (98-107) mEq/L Carbon Dioxide 18 L (23-29) mEq/L BUN 13 (6-20) mg/dL Creatinine 0.98 (0.70-1.30) mg/dL Glucose 81 (70-105) mg/dL Calcium 8.5 L (8.6-10.3) mg/dL Consult Discharge Plan - Plan Referrals: NONE,PCP [Primary Care Provider] -
[2018-06-20] MEDS: D5% in 0.45% NACL 1,000 ML IVC SCH ×2 (11:31→23:57)
[2018-06-21] MEDS: *HR* Heparin 5,000 UNIT/ML VIAL SQ SCH ×3 (04:59→20:53)
[2018-06-21 05:31] LABS: Hematocrit 35.4 % (37.5-50.1); Hemoglobin 12.2 g/dL (12.9-16.9); Mean Corpuscular HGB Conc 34.5 g/dL (31.6-35.5); Mean Corpuscular Hemoglobin 31.1 pg (28.0-33.3); Mean Corpuscular Volume 90.3 fL (83.0-100.0); Mean Platelet Volume 10.1 fL (9.4-12.4); Platelet Count 160 K/mcL (140-400); Red Blood Count 3.92 M/mcL (4.19-5.50); Red Cell Distribution Width 12.1 % (11.5-14.5)
[2018-06-21 05:51] LABS: Alanine Aminotransferase 9 Units/L (7-52); Albumin 3.5 g/dL (3.5-5.7); Albumin/Globulin Ratio 1.4 (1.1-2.2); Alkaline Phosphatase 45 Units/L (34-104); Aspartate Amino Transferase 11 Units/L (13-39); BUN/Creatinine Ratio 9 (6-26); Bilirubin,Direct 0.2 mg/dL (0.0-0.2); Bilirubin,Indirect 0.5 mg/dL (0.0-1.2); Bilirubin,Total 0.7 mg/dL (0.3-1.0); Blood Urea Nitrogen 8 mg/dL (6-20); Calcium 8.5 mg/dL (8.6-10.3); Carbon Dioxide 25 mEq/L (23-29); Chloride 108 mEq/L (98-107); Globulin 2.5 g/dL (2.4-3.5); Glucose 105 mg/dL (70-105); Osmolality,Calculated 287 (280-300); Potassium 3.9 mEq/L (3.5-5.1); Sodium 139 mEq/L (136-145); eGFR For Non-African Americans > 60 (> 60)
[2018-06-21] MEDS: Piperacillin/Tazobactam 3.375 GM in 0.9 % Sodium Chloride Mini Bag 100 ML IVPB SCH ×3 (08:37→23:43)
[2018-06-21] MEDS: MetroNIDAZOLE 500 MG/100 ML 500 MG/100 ML BAG IVPB SCH ×3 (08:38→23:44)
[2018-06-21] MEDS: D5% in 0.45% NACL 1,000 ML IVC SCH (14:37)
--- NOTE | 2018-06-21 17:46 | Internal Med Progress Note ---
Hospitalist Progress Note - Encounter Date of Encounter: 06/21/18 Time of Encounter: 17:41 - Subjective Interval History: Pt denies fever, chills, N/V , diarrhea. Abdominal pain improved. Denies chest pain or SOB. - Exam Vitals: Temp Pulse Resp BP Pulse Ox 98.3 F 45 14 123/70 97 06/21/18 14:49 06/21/18 14:49 06/21/18 14:49 06/21/18 14:49 06/21/18 14:49 Exam: General appearance: Present: A&O X 3, no distress - Head Head exam: Present: atraumatic, normocephalic - Eye Eye exam: Present: PERRL, conjuntiva pink, sclera anicteric Pupils: Present: PERRL - Neck Neck exam general surgery: Present: supple, trachea midline. Absent: lymphadenopathy - Respiratory Respiratory exam: Present: chest wall tenderness, CTAB. Absent: accessory muscle use, rales, rhonchi, wheezes - Cardiovascular Cardiovascular exam: Present: RRR, +S1, +S2. Absent: diastolic murmur, gallop, rubs, systolic murmur - GI/Abdominal GI/Abdominal exam: Present: normal bowel sounds, soft, no peritoneal signs, + diffuse tenderness Absent: distended - Extremities Exam Extremities exam: Present: warm, radial pulses palpable and symmetrical. Absent: calf tenderness, cyanotic, pedal edema - Neurological Exam Neurological exam: Present: CN II-XII intact, oriented X3, no focal deficits. Absent: pronater drift, facial droop, speech deficit - Skin Skin exam: Present: dry, intact - Assessment and Plan (1) Perforation of sigmoid colon due to diverticulitis Current Visit: Yes Status: Acute Assessment and Plan: Pt presented with abdominal pain. ABD CT showed sigmoid diverticulitis with contained perforation. General surgery following and managing with IV antibiotics with delayed primary resection once the acute inflammation has subsided. Dr. Hurd states starting pt on clear liquid for now. On IV fluids and PHYSICIST [employer] pump for pain control. IV Zosyn and Flagyl. General Surgery following (2) Hyperbilirubinemia Current Visit: Yes Status: Acute Assessment and Plan: Resolved. Total bilirubin 2.3; in the setting of acute diverticulitis. Repeat bilirubin 0.7, resolved. DVT Prophylaxis: heparin - Summary of Assessment and Plan Summary of Assessment and Plan: History of present illness: Dr. Hooker Mr. Duckworth is a 43 year old male who presents to the emergency department with abdominal pain that has been going on for a couple days or so. Started at nighttime a couple nights ago and has been getting worse. He said he had [place] food at the time. His last bowel movement was couple nights ago. He has been nauseous. The ED was hemodynamic is stable and underwent a CT abdomen and pelvis which showed sigmoid diverticulitis with contained perforation. Dr. Hurd was consulted in the ED and recommended the patient be admitted and started on IV Flagyl and Zosyn. Labs showed leukocytosis. Bilirubin total was elevated at 2.3 and direct was 0.4 and indirect bilirubin was 1.9. AST and ALT were not elevated. Hospice was not elevated. No history of liver disease. Patient denies any headache, fever, chills, blurry vision, chest pain, shortness of breath, diarrhea, urinary symptoms, or neurological symptoms - Time Spent with Patient Total time spent is greater than 50% in coordination of care (as documented) at patient's floor/unit and/or counseling patient: less than 15 minutes Plan of Care Discussed with: patient Internal Medicine: Result - Labs CBC & Chem 7: 06/21/18 05:11 06/21/18 05:11 Labs: Short CBC 06/21/18 Range/Units 05:11 WBC 3.8 L (4.3-11.1) K/mcL Hgb 12.2 L (12.9-16.9) g/dL Hct 35.4 L (37.5-50.1) % Plt Count 160 (140-400) K/mcL [facility] 06/21/18 05:11 Sodium 139 Potassium 3.9 Chloride 108 H Carbon Dioxide 25 BUN 8 Creatinine 0.92 Glucose 105 Calcium 8.5 L Liver Function 06/21/18 Range/Units 05:11 Total Bilirubin 0.7 (0.3-1.0) mg/dL Direct Bilirubin 0.2 (0.0-0.2) mg/dL AST 11 L (13-39) Units/L ALT 9 (7-52) Units/L Alkaline Phosphatase 45 (34-104) Units/L Albumin 3.5 (3.5-5.7) g/dL Consult Discharge Plan - Plan Referrals: NONE,PCP [Primary Care Provider] -
--- NOTE | 2018-06-21 18:44 | General Surgery Progress Note ---
Date of Encounter: 06/21/18 Time of Encounter: 18:37 Subjective Patient reports: feels better Narrative: General Surgery - Hospital Day #2 - this is a delayed dictation The patient was examined followed by a prolonged consultation/[id number] encounter with the patient and his daughter in during more than 45 minutes This entailed an extensive discussion regarding treatment options. The patient is feeling much improved, left lower quadrant pain is significantly diminished. Patient has remained afebrile at 98.3 The patient is hemodynamically stable with heart rate 45 and regular, respirations 14-16, blood pressure 123/70. Despite the bradycardia his blood pr essure has been maintained. Lungs: Clear, no obvious abdominal pain on deep inspiration Abdomen: Soft with tenderness only elicited to deep palpation. There were no discernible masses. No rebound. Bowel sounds present Urine output: 1900 mL so far today. Laboratories: White count has fallen to 3.8, hemoglobin 12.2, hematocrit 35.4. Electrolytes within normal limits and stable, chloride 108 Impression: Acute sigmoid diverticulitis. There is extra luminal air suggestive of contained perforation however this may be air contained within an elongated diverticulum. The patient has responded well to IV antibiotics. Recommendations: Allow clear liquids, if no increase in abdominal pain, distention, nausea or vomiting then a be able to advance to full seen in a.m. Continue IV antibiotics Taper pain meds - reduce EMPLOYEE RELATIONS SPECIALIST today; Possibly po meds in AM Treatment options include: continue IV antibiotics until patient is pain free with repeat CT and if the acute inflammatory changes are sufficiently reduced, surgery during this hospitalization. Continue IV antibiotics until patient is pain free, advance diet as long as patient is pain free, discharge home on oral antibiotics to consider interval sigmoid resection in 6-8 weeks after all inflammation has resolved Sigmoid resection using either laparoscopic or robotic choices to perform the surgery If status deteriorates he will require urgent surgical intervention. Continue IV antibiotics transition to oral antibiotics to complete a 14 day course of therapy. If the acute symptoms subside, with radiologic resolution of the inflammatory changes, patient may consider deferring surgery until recurrent symptoms. These treatment options with their risks and benefits were extensively discussed with the patient and his daughter. Objective Vital Signs - Last 8 Hours Temp Pulse Resp BP Pulse Ox 06/21/18 14:49 98.3 F 45 14 123/70 97 06/21/18 11:13 98.2 F 86 16 161/99 Intake and Output 06/21/18 06/21/18 06/21/18 07:59 15:59 23:59 Intake Total 200 / 200 1200 / 1200 Output Total 1000 / 1000 650 / 650 250 / 250 Balance -800 / -800 550 / 550 -250 / -250 Intake: IV Fluids 200 / 200 1200 / 1200 D5% And 0.45% Nacl 1000 Ml Bag 1000 / 1000 1,000 ML @ 75 mls/hr IVC . [id number] [facility] Rx#:[id number] Flagyl Premix 500 MG/100 ML 500 100 / 100 100 / 100 mg In 100 ml @ 100 mls/hr IVPB Q8HR [facility] Rx#:[id number] Zosyn 3.375 GM In 0.9 % Sodium 100 / 100 100 / 100 Chloride (Mini-Bag +) 100 ML @ 25 mls/hr IVPB Q8HR [facility] Rx#: [id number] Oral 0 / 0 Output: Urine 1000 / 1000 650 / 650 250 / 250 Other: Meal NPO LUNCH # Voids 1 1 Blood Glucose* 106 - Labs 06/21/18 05:11 06/21/18 05:11 Diabetes panel 06/21/18 Range/Units 05:11 Sodium 139 (136-145) mEq/L Potassium 3.9 (3.5-5.1) mEq/L Chloride 108 H (98-107) mEq/L Carbon Dioxide 25 (23-29) mEq/L BUN 8 (6-20) mg/dL Creatinine 0.92 (0.70-1.30) mg/dL Glucose 105 (70-105) mg/dL Calcium 8.5 L (8.6-10.3) mg/dL AST 11 L (13-39) Units/L ALT 9 (7-52) Units/L Alkaline Phosphatase 45 (34-104) Units/L Albumin 3.5 (3.5-5.7) g/dL Calcium panel 06/21/18 Range/Units 05:11 Calcium 8.5 L (8.6-10.3) mg/dL Albumin 3.5 (3.5-5.7) g/dL Pituitary panel 06/21/18 Range/Units 05:11 Sodium 139 (136-145) mEq/L Potassium 3.9 (3.5-5.1) mEq/L Chloride 108 H (98-107) mEq/L Carbon Dioxide 25 (23-29) mEq/L BUN 8 (6-20) mg/dL Creatinine 0.92 (0.70-1.30) mg/dL Glucose 105 (70-105) mg/dL Calcium 8.5 L (8.6-10.3) mg/dL Adrenal panel 06/21/18 Range/Units 05:11 Sodium 139 (136-145) mEq/L Potassium 3.9 (3.5-5.1) mEq/L Chloride 108 H (98-107) mEq/L Carbon Dioxide 25 (23-29) mEq/L BUN 8 (6-20) mg/dL Creatinine 0.92 (0.70-1.30) mg/dL Glucose 105 (70-105) mg/dL Calcium 8.5 L (8.6-10.3) mg/dL Total Bilirubin 0.7 (0.3-1.0) mg/dL AST 11 L (13-39) Units/L ALT 9 (7-52) Units/L Alkaline Phosphatase 45 (34-104) Units/L Albumin 3.5 (3.5-5.7) g/dL Consult Discharge Plan - Plan Referrals: NONE,PCP [Primary Care Provider] -
[2018-06-21] MEDS ORDERED: *HR* HYDROmorphone 20 MG/20 ML PCA IVC PRN (18:48)
[2018-06-22] MEDS: *HR* Heparin 5,000 UNIT/ML VIAL SQ SCH ×3 (05:23→21:54)
[2018-06-22] MEDS: D5% in 0.45% NACL 1,000 ML IVC SCH ×2 (05:23→15:54)
[2018-06-22 06:33] LABS: Hematocrit 39.7 % (37.5-50.1); Hemoglobin 13.3 g/dL (12.9-16.9); Mean Corpuscular HGB Conc 33.5 g/dL (31.6-35.5); Mean Corpuscular Hemoglobin 30.5 pg (28.0-33.3); Mean Corpuscular Volume 91.1 fL (83.0-100.0); Mean Platelet Volume 10.1 fL (9.4-12.4); Platelet Count 194 K/mcL (140-400); Red Blood Count 4.36 M/mcL (4.19-5.50); Red Cell Distribution Width 11.9 % (11.5-14.5)
[2018-06-22 07:00] LABS: Alanine Aminotransferase 11 Units/L (7-52); Albumin 3.9 g/dL (3.5-5.7); Albumin/Globulin Ratio 1.6 (1.1-2.2); Alkaline Phosphatase 48 Units/L (34-104); Aspartate Amino Transferase 16 Units/L (13-39); BUN/Creatinine Ratio 6 (6-26); Bilirubin,Direct 0.2 mg/dL (0.0-0.2); Bilirubin,Indirect 0.6 mg/dL (0.0-1.2); Bilirubin,Total 0.8 mg/dL (0.3-1.0); Blood Urea Nitrogen 6 mg/dL (6-20); Calcium 8.9 mg/dL (8.6-10.3); Carbon Dioxide 22 mEq/L (23-29); Chloride 108 mEq/L (98-107); Globulin 2.5 g/dL (2.4-3.5); Glucose 98 mg/dL (70-105); Osmolality,Calculated 288 (280-300); Potassium 3.9 mEq/L (3.5-5.1); Sodium 140 mEq/L (136-145); Total Protein 6.4 g/dL (6.4-8.9); eGFR For Non-African Americans > 60 (> 60)
[2018-06-22] MEDS: Piperacillin/Tazobactam 3.375 GM in 0.9 % Sodium Chloride Mini Bag 100 ML IVPB SCH ×3 (07:31→23:56)
[2018-06-22] MEDS: MetroNIDAZOLE 500 MG/100 ML 500 MG/100 ML BAG IVPB SCH ×3 (07:37→23:59)
[2018-06-22] MEDS ORDERED: *HR* HYDROcodone/Acet 5/325 mg TABLET PO PRN (15:33)
[2018-06-22] MEDS ORDERED: Acetaminophen 325 MG TABLET PO PRN (15:36)
--- NOTE | 2018-06-22 16:03 | General Surgery Progress Note ---
Date of Encounter: 06/22/18 Time of Encounter: 15:55 Subjective Narrative: General Surgery - hospital day #3 Patient feeling significantly improved, pain is diminished almost resolved. Afebrile, currently 98.2; pulse 42-50, respirations 14, blood pressure 119/78. Patient with continued diminishing abdominal pain despite oral intake (clear liquids) and diminished FRONT DESK COORDINATOR pain meds Lungs: Clear Abdomen: Soft, nondistended, minimal tenderness to deep palpation in the left lower quadrant. No discernible masses. No rebound. Urine output: 1900 mL for calendar day 06/21/18; 800 mL so far today Laboratories: White count 4.0, hemoglobin 13.3, hematocrit 39.7. Impression: Acute sigmoid diverticulitis. Improved with IV antibiotics. Acceptable status with treatment. Tolerating clear liquids. Plan: Advance diet to full liquids; if liquids tolerated without increasing abdominal pain, fever or leukocytosis - regular diet in a.m. Discontinue IV fluids and FRONT DESK COORDINATOR Dilaudid Tylenol as needed for pain; Vicodin 5/325 every 6 hours as needed for pain not relieved by Tylenol. The patient's sister was at bedside; discuss continued care with the patient and his sister. Treatment options were again discussed. Urgent intervention is only planned if the patient has a sudden exacerbation of his symptoms as we advance diet and diminished pain control. Objective Vital Signs - Last 8 Hours Temp Pulse Resp BP Pulse Ox 06/22/18 13:37 98.2 F 50 14 119/78 97 06/22/18 10:45 98.4 F 42 14 121/77 97 06/22/18 08:32 95 Intake and Output 06/21/18 06/22/18 06/22/18 23:59 07:59 15:59 Intake Total 440 / 440 1200 / 1200 1550 / 1550 Output Total 250 / 250 300 / 300 500 / 500 Balance 190 / 190 900 / 900 1050 / 1050 Intake: IV Fluids 200 / 200 1200 / 1200 950 / 950 D5% And 0.45% Nacl 1000 Ml Bag 1000 / 1000 750 / 750 1,000 ML @ 75 mls/hr IVC . [id number] [facility] Rx#:[id number] Flagyl Premix 500 MG/100 ML 500 100 / 100 100 / 100 100 / 100 mg In 100 ml @ 100 mls/hr IVPB Q8HR [facility] Rx#:[id number] Zosyn 3.375 GM In 0.9 % Sodium 100 / 100 100 / 100 100 / 100 Chloride (Mini-Bag +) 100 ML @ 25 mls/hr IVPB Q8HR [facility] Rx#: [id number] Oral 240 / 240 0 / 0 600 / 600 Output: Urine 250 / 250 300 / 300 500 / 500 Other: Meal Dinner Lunch - Labs 06/22/18 05:29 06/22/18 05:29 Diabetes panel 06/22/18 Range/Units 05:29 Sodium 140 (136-145) mEq/L Potassium 3.9 (3.5-5.1) mEq/L Chloride 108 H (98-107) mEq/L Carbon Dioxide 22 L (23-29) mEq/L BUN 6 (6-20) mg/dL Creatinine 0.95 (0.70-1.30) mg/dL Glucose 98 (70-105) mg/dL Calcium 8.9 (8.6-10.3) mg/dL AST 16 (13-39) Units/L ALT 11 (7-52) Units/L Alkaline Phosphatase 48 (34-104) Units/L Albumin 3.9 (3.5-5.7) g/dL Calcium panel 06/22/18 Range/Units 05:29 Calcium 8.9 (8.6-10.3) mg/dL Albumin 3.9 (3.5-5.7) g/dL Pituitary panel 06/22/18 Range/Units 05:29 Sodium 140 (136-145) mEq/L Potassium 3.9 (3.5-5.1) mEq/L Chloride 108 H (98-107) mEq/L Carbon Dioxide 22 L (23-29) mEq/L BUN 6 (6-20) mg/dL Creatinine 0.95 (0.70-1.30) mg/dL Glucose 98 (70-105) mg/dL Calcium 8.9 (8.6-10.3) mg/dL Adrenal panel 06/22/18 Range/Units 05:29 Sodium 140 (136-145) mEq/L Potassium 3.9 (3.5-5.1) mEq/L Chloride 108 H (98-107) mEq/L Carbon Dioxide 22 L (23-29) mEq/L BUN 6 (6-20) mg/dL Creatinine 0.95 (0.70-1.30) mg/dL Glucose 98 (70-105) mg/dL Calcium 8.9 (8.6-10.3) mg/dL Total Bilirubin 0.8 (0.3-1.0) mg/dL AST 16 (13-39) Units/L ALT 11 (7-52) Units/L Alkaline Phosphatase 48 (34-104) Units/L Albumin 3.9 (3.5-5.7) g/dL Consult Discharge Plan - Plan Referrals: NONE,PCP [Primary Care Provider] -
--- NOTE | 2018-06-22 18:35 | Internal Med Progress Note ---
Hospitalist Progress Note - Encounter Date of Encounter: 06/22/18 Time of Encounter: 09:00 - Subjective Interval History: Pt feels abd pain has improved, need less pain meds, advanced to full liquid diet per surgical consult. No fever. - Exam Vitals: Temp Pulse Resp BP Pulse Ox 98.2 F 50 14 119/78 97 06/22/18 13:37 06/22/18 13:37 06/22/18 13:37 06/22/18 13:37 06/22/18 13:37 Exam: General appearance: Present: A&O X 3, no distress - Head Head exam: Present: atraumatic, normocephalic - Eye Eye exam: Present: PERRL, conjuntiva pink, sclera anicteric Pupils: Present: PERRL - Neck Neck exam general surgery: Present: supple, trachea midline. Absent: lymph adenopathy - Respiratory Respiratory exam: Present: chest wall tenderness, CTAB. Absent: accessory muscle use, rales, rhonchi, wheezes - Cardiovascular Cardiovascular exam: Present: RRR, +S1, +S2. Absent: diastolic murmur, gallop, rubs, systolic murmur - GI/Abdominal GI/Abdominal exam: Present: normal bowel sounds, soft, no peritoneal signs, + diffuse tenderness Absent: distended - Extremities Exam Extremities exam: Present: warm, radial pulses palpable and symmetrical. Absent: calf tenderness, cyanotic, pedal edema - Neurological Exam Neurological exam: Present: CN II-XII intact, oriented X3, no focal deficits. Absent: pronater drift, facial droop, speech deficit - Skin Skin exam: Present: dry, intact - Assessment and Plan (1) Perforation of sigmoid colon due to diverticulitis Current Visit: Yes Status: Acute Assessment and Plan: Pt presented with abdominal pain. ABD CT showed sigmoid diverticulitis with contained perforation. General surgery following and managing with IV antibiotics with delayed primary resection once the acute inflammation has subsided. Full liquid diet started today per surgical consult Dr Hurd On IV fluids and SHOVEL MECHANIC pump for pain control. IV Zosyn and Flagyl. General Surgery following (2) Hyperbilirubinemia Current Visit: Yes Status: Acute Assessment and Plan: Resolved. Total bilirubin 2.3; in the setting of acute diverticulitis. Repeat bilirubin 0.7, resolved. DVT Prophylaxis: heparin SC - Time Spent with Patient Total time spent is greater than 50% in coordination of care (as documented) at patient's floor/unit and/or counseling patient: 30 min 25 - 35 minutes Plan of Care Discussed with: patient Internal Medicine: Result - Labs CBC & Chem 7: 06/22/18 05:29 06/22/18 05:29 Labs: Short CBC 06/22/18 Range/Units 05:29 WBC 4.0 L (4.3-11.1) K/mcL Hgb 13.3 (12.9-16.9) g/dL Hct 39.7 (37.5-50.1) % Plt Count 194 (140-400) K/mcL BMP 06/22/18 05:29 Sodium 140 Potassium 3.9 Chloride 108 H Carbon Dioxide 22 L BUN 6 Creatinine 0.95 Glucose 98 Calcium 8.9 Liver Function 06/22/18 Range/Units 05:29 Total Bilirubin 0.8 (0.3-1.0) mg/dL Direct Bilirubin 0.2 (0.0-0.2) mg/dL AST 16 (13-39) Units/L ALT 11 (7-52) Units/L Alkaline Phosphatase 48 (34-104) Units/L Albumin 3.9 (3.5-5.7) g/dL Consult Discharge Plan - Plan Referrals: NONE,PCP [Primary Care Provider] -
[2018-06-23 05:35] LABS: Basophils % 0.7 %; Eosinophils # 0.1 K/mcL (0.0-0.6); Eosinophils % 1.4 %; Hematocrit 41.4 % (37.5-50.1); Hemoglobin 14.2 g/dL (12.9-16.9); Immature Granulocytes % 1.9 % (0-4); Lymphocytes # 1.3 K/mcL (0.6-4.6); Lymphocytes % 31.1 %; Mean Corpuscular HGB Conc 34.3 g/dL (31.6-35.5); Mean Corpuscular Hemoglobin 30.9 pg (28.0-33.3); Mean Corpuscular Volume 90.2 fL (83.0-100.0); Mean Platelet Volume 10.2 fL (9.4-12.4); Monocytes # 0.4 K/mcL (0.0-1.3); Monocytes % 9.2 %; Neutrophils # 2.3 K/mcL (1.6-8.9); Platelet Count 192 K/mcL (140-400); Red Blood Count 4.59 M/mcL (4.19-5.50); Segmented Neutrophils % 55.7 %
[2018-06-23] MEDS: *HR* Heparin 5,000 UNIT/ML VIAL SQ SCH ×2 (05:42→14:00)
[2018-06-23 06:02] LABS: Reactive Lymphocytes Present (Not Present)
[2018-06-23 06:03] LABS: Platelet Estimate Normal (Normal)
[2018-06-23] MEDS: Piperacillin/Tazobactam 3.375 GM in 0.9 % Sodium Chloride Mini Bag 100 ML IVPB SCH (07:50)
[2018-06-23] MEDS: MetroNIDAZOLE 500 MG/100 ML 500 MG/100 ML BAG IVPB SCH (07:50)
--- NOTE | 2018-06-23 12:25 | Internal Med Progress Note ---
Hospitalist Progress Note - Encounter Date of Encounter: 06/23/18 Time of Encounter: 09:00 - Subjective Interval History: Pt feels abd pain has improved, need less pain meds, VENEER TAPING MACHINE OFFBEARER discontinued per surgical consult. Diet advanced to regular diet. Pt had BM yesterday. No fever. - Exam Vitals: Temp Pulse Resp BP Pulse Ox 98.5 F 51 14 121/73 97 06/23/18 07:41 06/23/18 07:41 06/23/18 07:41 06/23/18 07:41 06/23/18 07:41 Exam: General appearance: Present: A&O X 3, no distress - Head Head exam: Present: atraumatic, normocephalic - Eye Eye exam: Present: PERRL, conjuntiva pink, sclera anicteric Pupils: Present: PERRL - Neck Neck exam general surgery: Present: supple, trachea midline. Absent: lymphadenopathy - Respiratory Respiratory exam: Present: chest wall tenderness, CTAB. Absent: accessory muscle use, rales, rhonchi, wheezes - Cardiovascular Cardiovascular exam: Present: RRR, +S1, +S2. Absent: diastolic murmur, gallop, rubs, systolic murmur - GI/Abdominal GI/Abdominal exam: Present: normal bowel sounds, soft, no peritoneal signs, + diffuse tenderness, mainly on RLQ and LLQ. Absent: distended - Extremities Exam Extremities exam: Present: warm, radial pulses palpable and symmetrical. Absent: calf tenderness, cyanotic, pedal edema - Neurological Exam Neurological exam: Present: CN II-XII intact, oriented X3, no focal deficits. Absent: pronater drift, facial droop, speech deficit - Skin Skin exam: Present: dry, intact - Assessment and Plan (1) Perforation of sigmoid colon due to diverticulitis Current Visit: Yes Status: Acute Assessment and Plan: Pt presented with abdominal pain. ABD CT showed sigmoid diverticulitis with contained perforation. General surgery following and managing with IV antibiotics with delayed primary resection once the acute inflammation has subsided. Regular diet started today per surgical consult Dr Hurd Decreased pain meds requirement. IV cipro and Flagyl. General Surgery following (2) Hyperbilirubinemia Current Visit: Yes Status: Acute Assessment and Plan: Resolved. Total bilirubin 2.3; in the setting of acute diverticulitis. Repeat bilirubin 0.7. DVT Prophylaxis: heparin SC - Time Spent with Patient Total time spent is greater than 50% in coordination of care (as documented) at patient's floor/unit and/or counseling patient: 30 min 25 - 35 minutes Plan of Care Discussed with: patient Internal Medicine: Result - Labs CBC & Chem 7: 06/23/18 05:18 06/22/18 05:29 Labs: Short CBC 06/23/18 Range/Units 05:18 WBC 4.2 L (4.3-11.1) K/mcL Hgb 14.2 (12.9-16.9) g/dL Hct 41.4 (37.5-50.1) % Plt Count 192 (140-400) K/mcL Neutrophils # 2.3 (1.6-8.9) K/mcL Consult Discharge Plan - Plan Referrals: NONE,PCP [Primary Care Provider] -
[2018-06-23 14:48] VITALS: BP 149/97
--- NOTE | 2018-06-23 15:25 | General Surgery Progress Note ---
Date of Encounter: 06/23/18 Time of Encounter: 14:00 Subjective Patient reports: feels better, tolerating liquids well Narrative: General Surgery - Patient feeling well; tolerating full liquid diet. Abdominal pain resolved. Patient has not required any oral narcotic analgesics overnight. Patient remains afebrile, 98.1, hemodynamically stable - pulse 61-67, respir ations 14, blood pressure 143/87 to 149/97 Lungs: Clear, no obvious abdominal pain with deep inspiration Abdomen: Soft, nontender to deep palpation. No discernible intra-abdominal masses. No rebound. Laboratories: White count 4.2, hemoglobin 14.2, hematocrit 41.4. Normal differential. Impression: Hospital day #4 - 43-year-old male with acute sigmoid diverticulitis with extraluminal air consistent with a contained perforation. Abdominal pain resolved; leukocytosis resolved, currently leukopenic at 4.2 Patient tolerating full liquids; not requiring narcotic pain medication. Recommendations: Sufficient recovery and resolution of acute abdominal symptoms to allow discharge home Oral antibiotics to complete a 14 day course. Augmentin 500 mg by mouth 3 times a day and metronidazole 500 mg by mouth 3 times a day favored for this patient due to the possible contained perforation. She may consume a regular diet Surgical follow-up , 07/01/18 was patient experiences recurrent pain, fever, nausea, or vomiting Objective Vital Signs - Last 8 Hours Temp Pulse Resp BP Pulse Ox 06/23/18 14:44 98.1 F 67 14 149/97 99 06/23/18 12:29 98.1 F 61 14 143/87 97 06/23/18 07:41 98.5 F 51 14 121/73 97 Intake and Output 06/22/18 06/23/18 06/23/18 23:59 07:59 15:59 Intake Total 440 / 440 200 / 200 800 / 800 Output Total 1050 / 1050 350 / 350 Balance 440 / 440 -850 / -850 450 / 450 Intake: IV Fluids 200 / 200 200 / 200 200 / 200 Flagyl Premix 500 MG/100 ML 500 100 / 100 100 / 100 100 / 100 mg In 100 ml @ 100 mls/hr IVPB Q8HR [facility] Rx#:[id number] Zosyn 3.375 GM In 0.9 % Sodium 100 / 100 100 / 100 100 / 100 Chloride (Mini-Bag +) 100 ML @ 25 mls/hr IVPB Q8HR [facility] Rx#: [id number] Oral 240 / 240 600 / 600 Output: Urine 1050 / 1050 350 / 350 Other: Meal Dinner Lunch Percent of Meal Consumed 100% 100% # Voids 1 - Labs 06/23/18 05:18 06/22/18 05:29 Consult Discharge Plan - Plan Referrals: NONE,PCP [Primary Care Provider] -
--- NOTE | 2018-06-23 15:55 | Discharge Summary ---
- NOTES TO OUTPATIENT PROVIDER Notes to Outpatient Provider: 1. Cont po augmentin 500mg tid and flagyl 500mg tid to finish a 14 days course per surgical consult. Orders not resulted at time of discharge: Pending orders 06/24/18 04:00 BMP [Basic Metabolic Panel] AM 0400 Complete Blood Count [HEME] AM 0400 Date of Encounter: 06/23/18 Time of Encounter: 09:00 - Discharge Diagnosis (1) Perforation of sigmoid colon due to diverticulitis Priority: Primary Status: Acute (2) Hyperbilirubinemia Priority: Primary Status: Acute Hospital course: Mr. Duckworth is a 43 year old male presented to ER for abdominal pain. Abdominal CT reveals diverticulitis with contained perforation. Patient was placed on nothing by mouth, IV fluid, IV antibiotics. Surgical consult was called and saw patient and the follow-up patient during hospitalization. Recommendation from surgery consult was followed. After treatment, patient has less pain and tolerate a regular diet. Surgical consult cleared to discharge patient home with by mouth antibiotics. I have seen and examined this patient today. He has less pain, off ARBITRATOR. No fever. Vitals are stable. Will discharge patient home on by mouth antibiotics per surgical consult recommendations. Follow-up with surgeon Dr. Hurd as out patient. Discharge discussed with: patient - Time Spent with Patient Total time spent providing and/or coordinating discharge services: 30 minutes Less than 30 minutes - Discharge Medications Prescriptions: Acetaminophen [Tylenol] 650 mg PO Q6HR PRN 3 Days #24 tablet PRN Reason: Pain HYDROcodone/Acet 5/325 mg [Elizabeth 5-325 mg] 1 tab PO Q6HR PRN 2 Days #8 tablet PRN Reason: pain not relieved by Tylenol Home Medications: Acetaminophen [Tylenol] 650 mg PO Q6HR PRN 3 Days #24 tablet 06/23/18 [Rx] Amoxicillin/Clavulanate [Augmentin] 500 mg PO TID 10 Days #30 tablet 06/23/18 [Rx] HYDROcodone/Acet 5/325 mg [Elizabeth 5-325 mg] 1 tab PO Q6HR PRN 2 Days #8 tablet 06/23/18 [Rx] metroNIDAZOLE [Flagyl] 500 mg PO TID 10 Days #30 tablet 06/23/18 [Rx] Allergies/Adverse Reactions: Allergy/AdvReac Type Severity Reaction Status Date / Time No Known Allergies Allergy Verified 06/18/18 15:15 Date of admission: 06/19/18 16:34 Primary care physician: PCP NONE Consults: 06/18/18 18:02 Consult to Surgery [CONS] Stat Consulting Provider: [facility] Reason for Consult: tics with perf Time Notified: 18:02 Call Completed: Yes 06/21/18 15:44 Consult to [place] Resistance [CONS] Routine Reason for SW Consult: assistance with living will paperwork Discharging clinician: Chris Duron Anticipated date of discharge: 06/23/18 - Constitutional Vitals: Temp Pulse Resp BP Pulse Ox 98.1 F 67 14 149/97 99 06/23/18 14:44 06/23/18 14:44 06/23/18 14:44 06/23/18 14:44 06/23/18 14:44 General appearance: Present: A&O X 3, pleasant, no acute distress, answers questions appropriately Exam: General appearance: Present: A&O X 3, no distress - Head Head exam: Present: atraumatic, normocephalic - Eye Eye exam: Present: PERRL, conjuntiva pink, sclera anicteric Pupils: Present: PERRL - Neck Neck exam general surgery: Present: supple, trachea midline. Absent: lymphadenopathy - Respiratory Respiratory exam: Present: chest wall tenderness, CTAB. Absent: accessory muscle use, rales, rhonchi, wheezes - Cardiovascular Cardiovascular exam: Present: RRR, +S1, +S2. Absent: diastolic murmur, gallop, rubs, systolic murmur - GI/Abdominal GI/Abdominal exam: Present: normal bowel sounds, soft, no peritoneal signs, + diffuse tenderness, mainly on RLQ and LLQ. Absent: distended - Extremities Exam Extremities exam: Present: warm, radial pulses palpable and symmetrical. Absent: calf tenderness, cyanotic, pedal edema - Neurological Exam Neurological exam: Present: CN II-XII intact, oriented X3, no focal deficits. Absent: pronater drift, facial droop, speech deficit - Skin Skin exam: Present: dry, intact - Patient Status Disposition: Home, Self-Care Condition: Good Functional capacity at discharge: independent ambulation Overall status at discharge: patient is progressing back to baseline - Discharge Instructions Follow Up With: NONE,PCP [Primary Care Provider] - Dimas Hurd MD [Non-Partnered Physician] - 07/01/18 - Diet and Activity Activity: increase activity as tolerated Diet: regular diet
== END 2018-06-23 16:10 | disposition home or self-care (01) | DRG 392 ==
LOC: 3ANU 15:03 → EMEROOARM 15:03 → 3ANU 18:58 → SUATTDRO 06-19 16:34
PROVIDERS: ADMIT Internal Medicine; ATTEND Internal Medicine

== ENCOUNTER 2018-08-25 06:10 | Inpatient (IN) ==
[2018-08-25] MEDS ORDERED: cefOXitin 2,000 MG in Water for inj. (sterile) 20 ML 20 ML IVP ONE (06:23)
[2018-08-25] MEDS ORDERED: Ringers Solution, Lactated 1,000 ML IVC SCH ×2 (06:30→08:15)
[2018-08-25] MEDS ORDERED: *HR* Succinylcholine 200 MG/10 ML VIAL IVP ONE (07:39)
[2018-08-25] MEDS ORDERED: Dexamethasone 4 MG/ML VIAL ONE (07:39)
[2018-08-25] MEDS ORDERED: Lidocaine -MPF 2% 2 ML VIAL ONE (07:39)
[2018-08-25] MEDS ORDERED: *HR* Rocuronium Bromide 50 MG/5 ML VIAL ONE ×2 (07:39→09:30)
[2018-08-25] MEDS ORDERED: Ondansetron 4 MG/2 ML VIAL ONE (07:39)
[2018-08-25] MEDS ORDERED: *HR* Propofol 200 MG/20 ML VIAL IVP ONE (07:40)
[2018-08-25] MEDS ORDERED: *HR* FentaNYL (PF) 100 MCG/2 ML VIAL ONE (07:40)
[2018-08-25] MEDS ORDERED: *HR* Midazolam HCl 2 MG/2 ML VIAL ONE (07:40)
[2018-08-25] MEDS ORDERED: Lidocaine -MPF 4% 5 ML AMPUL ONE (07:42)
[2018-08-25] MEDS ORDERED: KETAMINE HCL 50 MG/ML SYRINGE IV ONE (08:01)
[2018-08-25] MEDS ORDERED: Acetaminophen IV 1,000 MG/100 ML INFUS..BTL ONE (08:03)
--- NOTE | 2018-08-25 08:03 | Anesthesia Evaluation PreOp ---
Date of Encounter: 08/25/18 Time of Encounter: 08:01 - Past History Planned Operation: Robotic sigmoid colon resection Cardiac History: Denies any Significant Hx Pulmonary History: Smoker, Pack/yr (20) NURSING PROGRAM COORDINATOR History: Denies Any Significant HX Other Medical History: Other (diverticulitis) Anesthesia History: No Prior Anesthetic Complications, Past Anesthesia (T&A, R ACL) Alcohol Use: occasionally Drug use: none Medications and Allergies Allergy/AdvReac Type Severity Reaction Status Date / Time No Known Allergies Allergy Verified 06/18/18 15:15 - Meds/Allergy Pre-op Review Medications Reviewed: Yes Allergies Reviewed: Yes Beta Blockers on Current Med List: No Anesthesia Results - Labs Laboratory Tests 06/22/18 08/18/18 05:29 09:40 WBC 5.9 Hgb 14.8 Hct 45.4 Plt Count 201 Sodium 140 Potassium 3.9 Chloride 108 H Carbon Dioxide 22 L BUN 6 Creatinine 0.95 Glucose 98 Anesthesia Exam O2 Sat Height 1.83 m Height 1.83 m Weight 81.647 kg Weight 81.647 kg O2 Sat by Pulse Oximetry 99 Vital Signs Temp Pulse Resp BP Pulse Ox 98.2 F 75 18 126/79 99 08/25/18 06:35 08/25/18 06:35 08/25/18 06:35 08/25/18 06:35 08/25/18 06:35 Height: 1.83m Weight: 81kg NPO (# of Hours): >8 Pain Scale: 0 Pain Scale Used: Numeric (1 - 10) - HEENT Pupil (Motor): Pupils equal, EOMI Mallampati: III Teeth: Normal Oral Opening: Greater than 3 - NURSING PROGRAM COORDINATOR LOC: Oriented NURSING PROGRAM COORDINATOR Motor: Normal RUE, Normal LUE, Normal RLE, Normal LLE, Normal Face NURSING PROGRAM COORDINATOR Sensory: Normal: RUE, LUE, RLE, LLE, Face - Cardiac Rhythm: Regular - Pulmonary Breath Sounds: bilateral Clear Respiratory Effort: Symmetrical Anesthesia Assess/Plan ASA Score: 2 Level of consciousness: Cooperative, Oriented Anesthetic Plan: General Monitoring Plan: Standard Monitors Recovery Plan: PACU
[2018-08-25] MEDS ORDERED: *HR* Meperidine 25 MG/ML SYRINGE IVP PRN (08:13)
[2018-08-25] MEDS ORDERED: *HR* OxyCODONE Immed Rel 5 MG TABLET PO PRN (08:13)
[2018-08-25] MEDS ORDERED: Ondansetron 4 MG/2 ML VIAL IVP ONE (08:13)
[2018-08-25] MEDS ORDERED: *HR* Promethazine 25 MG/ML VIAL IVP PRN (08:13)
--- NOTE | 2018-08-25 08:15 | History & Physical Report ---
Date of Encounter: 08/25/18 Time of Encounter: 08:14 24 Hour HP Update - Instructions Instructions: If the History and Physical is less than 30 days old and was completed prior to A.M. admission and or procedure and has NOT been updated on calendar day of procedure please complete this update prior to performing procedure. - Update Patient reports changes in Medical Condition: No Changes in examination, assessment, or condition: No Changes in Medication: No Preop tests/diagnostics Reviewed: Yes Surgery Remains Indicated: Yes Consent for Planned Operative Procedure(s) Verified: Yes - Pre-Operative Checklist Preoperative Checklist Indicated: Yes Prophylactic Antibiotic Ordered: Yes Home Medications Include Beta Timo: No
[2018-08-25] MEDS ORDERED: Neostigmine Methylsulfate 3 MG/3 ML SYRINGE ONE (09:00)
[2018-08-25] MEDS ORDERED: Ketorolac 30 MG/ML VIAL ONE (09:54)
[2018-08-25] MEDS ORDERED: *HR* HYDROMORPHONE 2 MG/ML VIAL ONE (10:17)
[2018-08-25] MEDS: *HR* HYDROmorphone (PF) 1 MG/ML SYRINGE IVP PRN ×2 (10:35→10:40)
--- NOTE | 2018-08-25 10:54 | Anesthesia Evaluation Post Op ---
Date of Encounter: 08/25/18 Time of Encounter: 10:54 - Vital Signs Vital Signs: Vital Signs/O2 Sat, Most Current Temp Pulse Resp BP Pulse Ox 97.3 F L 66 14 124/88 100 08/25/18 10:27 08/25/18 10:27 08/25/18 10:27 08/25/18 10:27 08/25/18 10:27 - Lungs Lungs: Clear Ascult./Percussion - Airway Airway: Non-obstructed - Cardiovascular Regular Rate - Mental Status Mental Status: Alert & Oriented, Answers Appropriately - Pain Pain Scale: 3 Pain Scale used: Numeric (1 - 10) - Nausea Vomiting Nausea Vomiting: Not Present - Hydration Hydration: Ice chips, Has not voided - Discharge PostOp Status: Transfer Patient to floor
[2018-08-25] MEDS ORDERED: Ondansetron 4 MG/2 ML VIAL IVP PRN (11:40)
[2018-08-25] MEDS ORDERED: Naloxone 0.4 MG/ML INJ IVP PRN (11:40)
[2018-08-25] MEDS: Ketorolac 15 MG/ML VIAL IVP SCH ×3 (12:12→23:59)
[2018-08-25] MEDS: 0.9 % Sodium Chloride 1,000 ML IVC SCH ×2 (12:13→23:58)
[2018-08-25] MEDS: OXYCODONE Oral CONC 10 MG/0.5 ML ORAL.SYG SL PRN ×2 (14:45→20:11)
--- NOTE | 2018-08-25 15:22 | Operative Note ---
Date of procedure: 08/25/18 Pre-op diagnosis: Sigmoid diverticulitis Post-op diagnosis: same Procedure: Robotic sigmoid resection with 29 mm EEA stapling Anesthesia: TOM Surgeon: Franc Hernandez Was there an bacteriology research assistant present: Yes Enterprise Sales Executive: Eusebia Woodard Estimated blood loss (cc): 5 Specimen: Sigmoid colon Condition: stable Disposition: same day Procedure in Detail: After informed consent, patient taken operating room placed supine position. After adequate sedation anesthesia patient was placed in a lithotomy position. After proper timeout a 12 mm cannula site was placed right superior to the umbilicus. Pneumoperitoneum was greater. A 13 mm cannula was placed in right lower quadrant. 5 mm camera was placed in the right upper quadrant. An 8 mm cannula was placed in subxiphoid region followed by another 8 mm in the left lower quadrant. Patient was placed in a headdown position. The robot was docked over the patient's left hip. Small bowel swept out of the pelvis. Rectosigmoid colon was then grasped and retracted cephalad. The peritoneum was then scored level of the sacral promontory. The left ureter was identified and kept on harm's way. The inferior mesenteric artery was then taken with a vessel sealer. The lateral rectosigmoid stalks were taken down the vessel sealer. The dissection was carried out down to approximate 4 cm above the pelvic floor. Rectosigmoid colon was dissected free from the retro-pubic tubercle region. Once it was freed a 45 mm robotic Endo staplers fired across the rectum. Once it was retracted and area was demarcated on the sigmoid colon for transection. Indocyanine green was infused and we had excellent perfusion. The splenic flexure was also taken down and mobilized. This mobilization allowed for less tension on the anastomosis. A counterincision was made in the suprapubic re gion. Dissection carried down the anterior rectus sheath. The rectus muscles were then divided in the midline with Aga clamp. Once they were split the rectosigmoid colon was delivered. Cami bowel clamps are used to place across the colon proximal and distal and transected. Allis clamps are placed on the bowel and then a pursestring suture device placed on the colon. 3-0 Prolene suture was passed. A pursestring sutures and created and a 29 mm EEA anvil was placed. Suture was tied and secured. Colon was then placed back in the pelvis. The stapler was passed through the anal canal and to the rectal stump and then the spear was placed through the staple line. The anvil was then connected secured and fired. There were 2 excellent donuts. There were several 2-0 silk sutures used to buttress the staple line. A leak test revealed no leak. At that point the procedure was terminated. All incisions are closed with 0 Vicryl suture and 4-0 Vicryl suture. Marcaine was inserted in the Pfannenstiel incision. He tolerated the procedure well.
[2018-08-25] MEDS: *HR* Morphine 2 MG/ML SYRINGE IVP PRN (22:24)
[2018-08-26] MEDS: OXYCODONE Oral CONC 10 MG/0.5 ML ORAL.SYG SL PRN ×2 (01:34→08:12)
[2018-08-26] MEDS: *HR* Morphine 2 MG/ML SYRINGE IVP PRN ×2 (04:16→10:00)
[2018-08-26] MEDS: Ketorolac 15 MG/ML VIAL IVP SCH ×2 (05:32→11:37)
[2018-08-26 06:46] LABS: Basophils % 0.1 %; Eosinophils % 0.1 %; Hematocrit 40.4 % (37.5-50.1); Hemoglobin 13.2 g/dL (12.9-16.9); Immature Granulocytes % 0.3 % (0-4); Lymphocytes # 1.4 K/mcL (0.6-4.6); Lymphocytes % 14.8 %; Mean Corpuscular HGB Conc 32.7 g/dL (31.6-35.5); Mean Corpuscular Hemoglobin 30.4 pg (28.0-33.3); Mean Corpuscular Volume 93.1 fL (83.0-100.0); Mean Platelet Volume 10.4 fL (9.4-12.4); Monocytes # 0.9 K/mcL (0.0-1.3); Monocytes % 9.4 %; Neutrophils # 6.9 K/mcL (1.6-8.9); Platelet Count 173 K/mcL (140-400); Red Blood Count 4.34 M/mcL (4.19-5.50); Red Cell Distribution Width 12.6 % (11.5-14.5); Segmented Neutrophils % 75.3 %
[2018-08-26 07:31] LABS: BUN/Creatinine Ratio 16 (6-26); Blood Urea Nitrogen 14 mg/dL (6-20); Calcium 8.5 mg/dL (8.6-10.3); Carbon Dioxide 24 mEq/L (23-29); Chloride 111 mEq/L (98-107); Glucose 95 mg/dL (70-105); Osmolality,Calculated 290 (280-300); Sodium 140 mEq/L (136-145); eGFR For Non-African Americans > 60 (> 60)
[2018-08-26] MEDS ORDERED: Simethicone 80 MG TAB.CHEW PO PRN (11:51)
[2018-08-26] MEDS ORDERED: Orphenadrine 60 MG/2 ML VIAL IVP ONE (12:02)
--- NOTE | 2018-08-26 12:51 | General Surgery Progress Note ---
Date of Encounter: 08/26/18 Time of Encounter: 11:30 - Assessment and Plan (1) S/P colectomy Current Visit: Yes Status: Acute Date of procedure: 08/25/18 Pre-op diagnosis: Sigmoid diverticulitis Post-op diagnosis: same Procedure: Robotic sigmoid resection with 29 mm EEA stapling Anesthesia: TOM Surgeon: Franc Hernandez POD #1 as above. Pathology pending. Patient states his abdominal discomfort is overall controlled. He has been up walking in the halls and has showered today. He denies passing flatus or having a bowel movement. He states his worst discomfort is his upper back and right shoulder. He feels like he's having a muscle spasm and has gas pains. There is palpable spasm of the trapezius muscle. Will treat with one dose of muscle relaxer and some simethicone see if this results his discomfort. Plan: Continue hospital care for another 24 to 48 hours pending clinical course continue supportive care and discomfort management while awaiting full return of bowel function clear liquid diet; advance to AKD for dinner ambulate as tolerated out of bed to chair TID patient may shower Norflex x1 dose apply ice as needed (2) Muscle spasm Current Visit: Yes Status: Acute Norflex x1 Subjective Narrative: Reports right upper shoulder and back pain. Feels like muscle spasms and "trapped gas." Denies fever, chills, or worsening abdominal pain. Denies flatus. Objective Vital Signs - Last 8 Hours Temp Pulse Resp BP Pulse Ox 08/26/18 11:20 98.5 F 83 15 154/85 96 08/26/18 08:45 95 08/26/18 06:14 98.1 F 63 16 111/63 95 Intake and Output 08/25/18 08/26/18 08/26/18 23:59 07:59 15:59 Intake Total 1430 / 1430 0 / 0 Output Total 1000 / 1000 475 / 475 200 / 200 Balance 430 / 430 -475 / -475 -200 / -200 Intake: IV Fluids 1000 / 1000 0.9 % Sodium Chloride 1,000 ML 1000 / 1000 @ 75 mls/hr IVC .[id number] TOMASZ Rx #:[id number] Oral 430 / 430 0 / 0 Output: Urine 1000 / 1000 475 / 475 200 / 200 Other: # Bowel Movements 0 Weight 81.6 kg Patient Weight 08/26/18 23:59 Weight 81.6 kg Vital Signs Temp Pulse Resp BP Pulse Ox 08/26/18 11:20 98.5 F 83 15 154/85 96 08/26/18 08:45 95 08/26/18 06:14 98.1 F 63 16 111/63 95 08/26/18 03:54 98.3 F 75 16 113/68 94 08/25/18 23:38 98.2 F 65 16 117/79 96 08/25/18 19:05 98.3 F 66 14 122/64 96 08/25/18 14:20 98.1 F 78 18 130/78 97 08/25/18 13:23 98.8 F 86 18 134/77 95 Intake and Output 08/25/18 08/26/18 08/26/18 23:59 07:59 15:59 Intake Total 1430 / 1430 0 / 0 Output Total 1000 / 1000 475 / 475 200 / 200 Balance 430 / 430 -475 / -475 -200 / -200 Intake: IV Fluids 1000 / 1000 0.9 % Sodium Chloride 1,000 ML 1000 / 1000 @ 75 mls/hr IVC .[id number] TOMASZ Rx #:[id number] Oral 430 / 430 0 / 0 Output: Urine 1000 / 1000 475 / 475 200 / 200 Other: # Bowel Movements 0 Weight 81.6 kg Patient Weight 08/26/18 23:59 Weight 81.6 kg VITAL SIGNS: Reviewed. See [facility] GENERAL: In no apparent distress. Up walking in halls, has showered HEENT: Normocephalic, atraumatic, pupils are equal and reactive, extraocular motions intact, oropharynx is pink and moist, there is no neck adenopathy or JVD noted. CHEST/RESPIRATORY: The thorax is free from signs of trauma. Lung sounds: clear to auscultation, normal respiratory effort CARDIAC: Regular rate and rhythm. Normal S1 and S2, without murmurs, gallops, or rubs. VASCULAR: No Edema. 2+ peripheral pulses. ABDOMEN: soft, expected postoperative tenderness, active bowel sounds INCISION: Surgical incision is clean, dry, and intact. There are no signs of cellulitis or infection noted. MUSCULOSKELETAL: Good range of motion of all major joints. Extremities without clubbing, cyanosis or edema. NEUROLOGIC EXAM: Alert and oriented x 3. Speech normal. Follows commands. PSYCHIATRIC: Mood normal. SKIN: No rash or lesions. - Labs 08/26/18 06:01 08/26/18 06:01 Diabetes panel 08/26/18 Range/Units 06:01 Sodium 140 (136-145) mEq/L Potassium 4.0 (3.5-5.1) mEq/L Chloride 111 H (98-107) mEq/L Carbon Dioxide 24 (23-29) mEq/L BUN 14 (6-20) mg/dL Creatinine 0.87 (0.70-1.30) mg/dL Glucose 95 (70-105) mg/dL Calcium 8.5 L (8.6-10.3) mg/dL Calcium panel 08/26/18 Range/Units 06:01 Calcium 8.5 L (8.6-10.3) mg/dL Pituitary panel 08/26/18 Range/Units 06:01 Sodium 140 (136-145) mEq/L Potassium 4.0 (3.5-5.1) mEq/L Chloride 111 H (98-107) mEq/L Carbon Dioxide 24 (23-29) mEq/L BUN 14 (6-20) mg/dL Creatinine 0.87 (0.70-1.30) mg/dL Glucose 95 (70-105) mg/dL Calcium 8.5 L (8.6-10.3) mg/dL Adrenal panel 08/26/18 Range/Units 06:01 Sodium 140 (136-145) mEq/L Potassium 4.0 (3.5-5.1) mEq/L Chloride 111 H (98-107) mEq/L Carbon Dioxide 24 (23-29) mEq/L BUN 14 (6-20) mg/dL Creatinine 0.87 (0.70-1.30) mg/dL Glucose 95 (70-105) mg/dL Calcium 8.5 L (8.6-10.3) mg/dL Consult Discharge Plan - Plan Referrals: Franc Hernandez DO [Partnered Physician] - 09/07/18 11:15 am Darby Marks CNP [Advanced Practice Nurse] -
--- NOTE | 2018-08-26 13:14 | Discharge Summary ---
Orders not resulted at time of discharge: Pending orders 08/25/18 10:33 Surgical Pathology [PTH] Routine Date of Encounter: 08/26/18 Time of Encounter: 15:17 - Discharge Diagnosis (1) S/P colectomy Priority: Primary Status: Acute (2) Muscle spasm Priority: Secondary Status: Acute General Surgery Exam Initial Vital Signs Temp Pulse Resp BP Pulse Ox 98.2 F 75 18 126/79 99 08/25/18 06:35 08/25/18 06:35 08/25/18 06:35 08/25/18 06:35 08/25/18 06:35 - Hospital Course Hospital course: Mr. Duckworth is a 43 year old male who presented on 08/25/2018 for elective robotics sigmoid colon resection for history of diverticulitis. His hospital course was complicated by pain control. He is ambulating avoiding without difficulty, tolerating a diet without nausea or vomiting, vital signs are stable, and his pain is now well-controlled. We will begin discharge planning to home with a follow-up in the office in approximately 2 weeks. - Time Spent with Patient Total time spent providing and/or coordinating discharge services: - Discharge Medications Prescriptions: Ondansetron ODT [Zofran ODT] 4 mg SL Q4HR PRN #15 tab.rapdis PRN Reason: Postsurgical nausea OxyCODONE/APAP 5/325 [Percocet 5/325 MG] 1 each PO Q6HR PRN 7 Days #28 tablet PRN Reason: Pain Docusate Sodium [Colace] 100 mg PO BID PRN #30 capsule PRN Reason: Contstipation Ibuprofen 800 mg PO Q8H PRN #30 tablet PRN Reason: Postsurgical pain Home Medications: Docusate Sodium [Colace] 100 mg PO BID PRN #30 capsule 08/26/18 [Rx] Ibuprofen 800 mg PO Q8H PRN #30 tablet 08/26/18 [Rx] Ondansetron ODT [Zofran ODT] 4 mg SL Q4HR PRN #15 tab.rapdis 08/26/18 [Rx] OxyCODONE/APAP 5/325 [Percocet 5/325 MG] 1 each PO Q6HR PRN 7 Days #28 tablet 08/26/18 [Rx] Allergies/Adverse Reactions: Allergy/AdvReac Type Severity Reaction Status Date / Time No Known Allergies Allergy Verified 08/25/18 19:03 Date of admission: 08/25/18 11:27 Primary care physician: PCP NONE Discharging clinician: Janeth Shah Anticipated date of discharge: 08/26/18 Labs on day of discharge: Labs from last 24 hours 08/26/18 08/26/18 06:01 06:01 WBC 9.2 RBC 4.34 Hgb 13.2 Hct 40.4 MCV 93.1 MCH 30.4 MCHC 32.7 RDW 12.6 Plt Count 173 MPV 10.4 Immature Gran % 0.3 Seg Neutrophils % 75.3 Lymphocytes % 14.8 Monocytes % 9.4 Eosinophils % 0.1 Basophils % 0.1 Neutrophils # 6.9 Lymphocytes # 1.4 Monocytes # 0.9 Eosinophils # 0.0 Basophils # 0.0 Sodium 140 Potassium 4.0 Chloride 111 H Carbon Dioxide 24 BUN 14 Creatinine 0.87 Est GFR ( Amer) > 60 Est GFR (Non-Af Amer) > 60 BUN/Creatinine Ratio 16 Glucose 95 Calculated Osmolality 290 Calcium 8.5 L - Patient Status Disposition: Home, Self-Care Condition: Good Functional capacity at discharge: independent ambulation Overall status at discharge: patient is progressing back to baseline - Discharge Instructions Instructions: Colectomy (DC) Follow Up With: Franc Hernandez DO [Partnered Physician] - 09/07/18 11:15 am Darby Marks, NAMRATA [Advanced Practice Nurse] - Additional Instructions: General Surgical Discharge Instructions 1. No pushing, pulling, or lifting greater than 15 lbs for 4 weeks. 2. You may shower beginning today, but no tub baths, soaking, or swimming for 2 weeks. 3. You may resume driving when you are off narcotics and are safe to react in a car. 4. Take ibuprofen every 8 hours for discomfort. If this does not relieve discomfort, you may take the as needed Percocet. Take narcotics as directed. Do not take more narcotics then directed and do not share your narcotics with any other person. Do not drink alcohol while on narcotics. 5. Take stool softeners (Colace) or a water based laxative (Miralax) while taking narcotics. You may hold for loose stools. 6. Report any fevers greater than 100.5F, increase abdominal discomfort, drainage that looks like pus, increased redness or pain at the surgical site, or any vomiting. 7. Report any pain in the calves, shortness of breath, or rapid heartbeat. 8. Follow-up in the office as directed. 9. If you were prescribed antibiotics, do not stop them without talking to your provider. - Diet and Activity Activity: increase activity as tolerated Diet: advance to your usual diet
[2018-08-26] MEDS ORDERED: *HR* OxyCODONE/APAP 5/325 TABLET PO PRN (13:17)
[2018-08-26] MEDS ORDERED: Ondansetron 4 MG/2 ML VIAL IVP PRN (13:18)
[2018-08-26] MEDS ORDERED: OXYCODONE Oral CONC 10 MG/0.5 ML ORAL.SYG SL PRN (13:18)
[2018-08-26 14:22] VITALS: BP 123/69
== END 2018-08-26 17:32 | disposition home or self-care (01) | DRG 331 ==
LOC: SAMDAY 06:10 → 3ANU 11:27
PROVIDERS: ADMIT Surgery; ATTEND Surgery